=== PATIENT | male | born 1950 | race Caucasian/White ===

== ENCOUNTER 2017-02-14 14:27 | Inpatient (IN) ==
--- NOTE | 2017-02-14 15:08 | Emergency Department Note ---
Disposition Clinical Impression: Elevated troponin Chest pain Qualifiers: Chest pain type: unspecified Qualified Code(s): R07.9 - Chest pain, unspecified Disposition: Admitted As Inpatient Condition: Good Chest Pain HPI - General Chief Complaint: ED Chest Pain Stated Complaint: [facility] Time Seen by Provider: 02/14/17 14:39 Source: patient, EMS Limitations: no limitations Vital Signs Reviewed: Yes Nursing Notes Reviewed: Yes - History of Present Illness HPI Narrative: Patient here for evaluation of chest pain. Patient is a [facility] who has been complaining about intermittent chest pain for over the last week. The patient was evaluated with an EKG and troponin. Troponin was found to be elevated. Patient was sent to our facility for further evaluation. Patient states that he has been having intermittent chest pain for months that has been described as a pressure that is sometimes worse with exertion and sometimes worse with no provacation. Describes as a pressure that self resolves with time and rest. States that he had a previous stress test years ago that was negative. No other cardiac workup or evaluation. No history of coronary artery disease or stents placed. [facility] chart dictated below: Past medical history : Diabetes, tinnitus, right-sided congestive heart failure, and STEMI, recurrent depression, CTD stage III, hypothyroidism, dependent personality, essential hypertension, insomnia, COPD, pernicious anemia, colitis, Medications include: Insulin, metformin, albuterol, trazodone, cancellous, simvastatin, lisinopril, levothyroxine, hydrochlorothiazide, finasteride, citalopram, aspirin, patient site note has concern for suicidal ideation with plan to overdose on ____. Major depressive disorder. Labs: Glucose 103, troponin 0.201, CK 603, no other labs appear to be present at this time. We will complete workup here in the emergency department, Severity scale (1-10): 0 - Related Data Home Medications Medication Instructions Recorded Confirmed Acetaminophen [Tylenol] 650 mg PO BID 02/03/16 05/07/16 Aspirin Enteric Coated [Aspirin EC] 81 mg PO DAILY 02/03/16 05/07/16 Cholecalciferol (D-3) [Vitamin D] 2,000 unit PO DAILY 02/03/16 05/07/16 Citalopram [CeleXA] 20 mg PO DAILY 02/03/16 05/07/16 Clotrimazole 1% CRM [Lotrimin 1%] 1 appl TP BID 02/03/16 05/07/16 Cyanocobalamin (Vitamin B-12) 1,000 mcg PO SUMOWEFRSA 02/03/16 05/07/16 [Vitamin B12] Finasteride [Proscar] 5 mg PO DAILY 02/03/16 05/07/16 Ipratropium [ATROVENT Inhaler] 2 puff IH QID 02/03/16 05/07/16 Levothyroxine [Synthroid] 75 mcg PO QAM 02/03/16 05/07/16 Lisinopril [Zestril] 10 mg PO DAILY 02/03/16 05/07/16 Olodaterol HCl [Striverdi Respimat] 2 puff IH DAILY 02/03/16 05/07/16 Omeprazole [PriLOSEC] 20 mg PO DAILY 02/03/16 05/07/16 Saxagliptin HCl [Onglyza] 2.5 mg PO DAILY 02/03/16 05/07/16 Simvastatin [Zocor] 20 mg PO HS 02/03/16 05/07/16 Tamsulosin [Flomax] 0.4 mg PO DAILY 02/03/16 05/07/16 Zolpidem [Ambien] 5 mg PO HS 02/03/16 05/07/16 glipiZIDE [Glipizide] 10 mg PO QAM 02/03/16 05/07/16 glipiZIDE [Glipizide] 20 mg PO QPM 02/03/16 05/07/16 Insulin Glargine [Lantus] 50 unit SQ HS 02/06/16 05/07/16 Budesonide/Formoterol 160/4.5 2 puff IH BIDR 05/07/16 05/07/16 [Symbicort 160/4.5] Previous Rx's Medication Instructions Recorded Fluticasone Propionate [Flovent 100 mcg IH BID #1 blst.w.dev 02/06/16 Diskus] Furosemide [Lasix] 40 mg PO DAILY #30 tablet 02/06/16 Allergies Allergy/AdvReac Type Severity Reaction Status Date / Time No Known Allergies Allergy Verified 02/03/16 11:51 Review of Systems: CONSTITUTIONAL: No weight loss, fever, chills, weakness or fatigue. HEENT: Eyes: No visual changes. Ears, Nose, Throat: No hearing loss, difficulty talking or unable to swallow. SKIN: No rash or itching. CARDIOVASCULAR: Chest pain RESPIRATORY: No shortness of breath, cough or sputum. GASTROINTESTINAL: No anorexia, nausea, vomiting or diarrhea. No abdominal pain or blood. GENITOURINARY: No burning on urination or hematuria. NEUROLOGICAL: No headache, dizziness, syncope, paralysis, ataxia, numbness or tingling in the extremities. No change in bowel or bladder control. MUSCULOSKELETAL: No muscle pain, back pain, joint pain or stiffness. Chest Pain PMH - Past Medical History Medical history: Reports: CHF, COPD, diabetes, GERD, hyperlipidemia, hypertension, renal disease Surgical history: Reports: cholecystectomy Psychiatric history: Reports: depression, previous psychiatric hospitalization - Social History Smoking Status: Former smoker Alcohol use: Reports: none Drug use: Reports: none Physical Exam General appearance: NAD, conversant Eyes: anicteric sclerae, moist conjunctivae; PERRL HENT: Atraumatic; oropharynx clear with moist mucous membranes and no mucosal ulcerations Neck: Normal inspection; Trachea midline; FROM, supple Lungs: CTA, with normal respiratory effort and no intercostal retractions CV: RRR, no MRGs Abdomen: Soft, non-tender; no rebound or gaurding; significant abdominal hernia Extremities: No peripheral edema or extremity lymphadenopathy Skin: Normal temperature; no rash, ulcers or lesions Psych: Appropriate mood and affect Neuro: alert and oriented to person, place and time - General Limitations: no limitations General appearance: alert, in no apparent distress Course - Reevaluation(s) Reevaluation #1: chest pain free upon re-evaluation - Consultations Consultation #1: Discussed with Hospitalist. Pt accepted. Vital Signs Temperature 99.2 F 02/14/17 14:35 Pulse Rate 72 02/14/17 14:35 Respiratory Rate 18 02/14/17 14:35 Blood Pressure 120/64 02/14/17 14:35 O2 Sat by Pulse Oximetry 93 02/14/17 14:35 Temperature 99.2 F 02/14/17 14:35 Pulse Rate 70 02/14/17 17:31 Respiratory Rate 16 02/14/17 18:28 Blood Pressure 121/46 02/14/17 18:28 O2 Sat by Pulse Oximetry 94 02/14/17 17:31 Oxygen Delivery Oxygen Delivery Room Air Chest Pain - Medical Records Medical records reviewed: Yes I reviewed the patient's medical records. - Lab Data Lab results reviewed: Yes I reviewed the patient's lab results. Result diagrams: 02/14/17 16:29 02/14/17 16:29 Lab Results 02/14/17 02/14/17 02/14/17 Range/Units 16:29 16:29 16:29 WBC 12.4 H (4.3-11.1) K/mcL RBC 4.40 (4.19-5.50) M/mcL Hgb 9.6 L (12.9-16.9) g/dL Hct 32.6 L (37.5-50.1) % MCV 74.1 L (83.0-100.0) fL MCH 21.8 L (28.0-33.3) pg MCHC 29.4 L (31.6-35.5) g/dL RDW 16.1 H (11.5-14.5) % Plt Count 234 (140-400) K/mcL MPV 8.9 L (9.4-12.4) fL Immature Gran % 0.5 (0-4) % Seg Neutrophils % 71.4 % Lymphocytes % 17.7 % Monocytes % 8.3 % Eosinophils % 1.9 % Basophils % 0.2 % Neutrophils # 8.9 (1.6-8.9) K/mcL Lymphocytes # 2.2 (0.6-4.6) K/mcL Monocytes # 1.0 (0.0-1.3) K/mcL Eosinophils # 0.2 (0.0-0.6) K/mcL Basophils # 0.0 (0.0-0.2) K/mcL PT 12.3 H (9.4-12.1) Seconds INR 1.1 APTT 29.6 (26.0-36.0) Seconds Sodium 139 (136-145) mEq/L Potassium 4.6 H (3.5-4.5) mEq/L Chloride 101 (98-109) mEq/L Carbon Dioxide 28 (19-29) mEq/L BUN 21 (8-26) mg/dL Creatinine 1.51 H (0.72-1.25) mg/dL Est GFR ( Amer) 56 L (> 60) Est GFR (Non-Af Amer) 46 L (> 60) BUN/Creatinine Ratio 14 (6-26) Glucose 100 H (70-99) mg/dL Calculated Osmolality 291 (280-300) Calcium 9.9 (8.6-10.8) mg/dL Troponin I (0-0.03) ng/mL 02/14/17 Range/Units 16:29 WBC (4.3-11.1) K/mcL RBC (4.19-5.50) M/mcL Hgb (12.9-16.9) g/dL Hct (37.5-50.1) % MCV (83.0-100.0) fL MCH (28.0-33.3) pg MCHC (31.6-35.5) g/dL RDW (11.5-14.5) % Plt Count (140-400) K/mcL MPV (9.4-12.4) fL Immature Gran % (0-4) % Seg Neutrophils % % Lymphocytes % % Monocytes % % Eosinophils % % Basophils % % Neutrophils # (1.6-8.9) K/mcL Lymphocytes # (0.6-4.6) K/mcL Monocytes # (0.0-1.3) K/mcL Eosinophils # (0.0-0.6) K/mcL Basophils # (0.0-0.2) K/mcL PT (9.4-12.1) Seconds INR APTT (26.0-36.0) Seconds Sodium (136-145) mEq/L Potassium (3.5-4.5) mEq/L Chloride (98-109) mEq/L Carbon Dioxide (19-29) mEq/L BUN (8-26) mg/dL Creatinine (0.72-1.25) mg/dL Est GFR ( Amer) (> 60) Est GFR (Non-Af Amer) (> 60) BUN/Creatinine Ratio (6-26) Glucose (70-99) mg/dL Calculated Osmolality (280-300) Calcium (8.6-10.8) mg/dL Troponin I 0.04 H* (0-0.03) ng/mL - Radiology Data Radiology results reviewed: Yes I reviewed the patient's radiology results. - EKG Data EKG attestation: Yes I reviewed and interpreted this EKG. EKG results narrative: Sinus rhythm with ventricular rate of 73. IN 160. QRS 89. QTC 387. Patient has no significant ST elevations or depressions. Patient has nonspecific T- wave changes with no previous EKG for comparison. Patient's EKG from the [facility] for comparison is unchanged. Critical Care Time Critical Care Time: Yes Total Critical Care Time: 35 Attestation: Patient with elevated troponin. Attestation Statement - Attestation Attestation: Patient was seen with resident physician. I reviewed the history, physical, assessment and plan, and agree with the findings. I also personally evaluated this patient and had [id number] time with this patient. 66-year-old male who comes in from the [facility] psych department with a complaint of chest pain. Patient complained of chest pain for the last week more specifically today midsternal acid about 10 minutes it was sharp in nature. Troponin EKG were done. Troponin was positive. He is sent into the ED for evaluation and admission. Patient states that he is currently chest pain-free and denies other complaints. ED vital signs were stable. ENT is unremarkable. Heart and lungs are both normal. Abdomen is soft and nontender. Extremities unremarkable. Neurologically is patient is intact. ED course repeat troponin was positive at 0.04. EKG shows no acute ischemic changes. Patient is pain-free. Other labs shows some renal insufficiency. Discussed case as well as heparinization with hospitalist. Will get patient admitted to the hospital for further evaluation and treatment. Hemodynamically he was stable while in the emergency department. Agree with the resident physician assessment and plan. Critical care time managing chest pain 35 minutes.
[2017-02-14 16:38] LABS: Basophils % 0.2 %; Eosinophils # 0.2 K/mcL (0.0-0.6); Eosinophils % 1.9 %; Hematocrit 32.6 % (37.5-50.1); Hemoglobin 9.6 g/dL (12.9-16.9); Immature Granulocytes % 0.5 % (0-4); Lymphocytes # 2.2 K/mcL (0.6-4.6); Lymphocytes % 17.7 %; Mean Corpuscular HGB Conc 29.4 g/dL (31.6-35.5); Mean Corpuscular Hemoglobin 21.8 pg (28.0-33.3); Mean Corpuscular Volume 74.1 fL (83.0-100.0); Mean Platelet Volume 8.9 fL (9.4-12.4); Monocytes % 8.3 %; Neutrophils # 8.9 K/mcL (1.6-8.9); Platelet Count 234 K/mcL (140-400); Red Cell Distribution Width 16.1 % (11.5-14.5); Segmented Neutrophils % 71.4 %
[2017-02-14 16:43] LABS: INR 1.1; Prothrombin Time 12.3 Seconds (9.4-12.1)
[2017-02-14 16:46] LABS: Activated Partial Thrombo Time 29.6 Seconds (26.0-36.0)
[2017-02-14 16:51] LABS: Calcium 9.9 mg/dL (8.6-10.8); Potassium 4.6 mEq/L (3.5-4.5)
[2017-02-14] MEDS ORDERED: Aspirin 81 MG TAB.CHEW PO STA (17:05)
[2017-02-14] MEDS ORDERED: Naloxone 0.4 MG/ML INJ IVP PRN (19:34)
[2017-02-14] MEDS ORDERED: Ondansetron 4 MG/2 ML VIAL IVP PRN (20:06)
[2017-02-14] MEDS ORDERED: Acetaminophen 325 MG TABLET PO PRN (20:06)
[2017-02-14] MEDS ORDERED: Nitroglycerin 0.4 MG TAB.SUBL SL PRN (20:32)
[2017-02-14] MEDS: Ipratropium/Albuterol Neb 3 ML IH SCH ×2 (20:50→23:17)
--- NOTE | 2017-02-14 20:54 | Internal Med History&Physical ---
<Ken Johnson - Last Filed: 02/14/17 21:52> Date of Encounter: 02/14/17 Time of Encounter: 19:30 Assessment and Plan (1) Chest pain Current visit: Yes Status: Acute Patient presents with chest pain that he states has worsened recently. He reports that he has had chest pain for several years that comes and goes, but current chest pain is becoming more intense and presents as stabbing pain with no radiation. Patient reports he had previous stress test done [facility] and previous echo was approximately 1 year ago. Patient was admitted to the [facility] inpatient unit for the past week due to suicidal ideations and was transferred to [facility] due to his chest pain and initial abnormal troponin level of 0.04. Patient placed on continuous cardiac telemetry and supplemental O2 with SPO2 monitoring with orders for echocardiogram, trended troponins 2, and nitroglycerin when necessary. Orders placed for cardiology consult which was discussed with Dr. Rahman, ordered echocardiogram, continuous cardiac telemetry, supplemental O2 with SPO2 monitoring, trended troponins 2, and requisition for stress test results from [facility]. Due to patient's drop in hemoglobin and hematocrit, iron studies and fecal occult stool ordered to assess for possible GI bleeding. Will consider GI consult based on these results. Will hold patient's lisinopril, Lasix, and oral antihyperglycemic medications at this time. Patient to be monitored closely for signs of increasing cardiac and/or respiratory distress. Qualifiers: Chest pain type: unspecified Qualified Code(s): R07.9 - Chest pain, unspecified (2) Elevated troponin Current visit: Yes Status: Acute Patient presents with acute elevated troponin level of 0.04 from initial blood draw at the [facility]. Trend troponins 2 every 6 and continue to monitor patient for increasing chest pain and shortness of breath. Cardiology consult ordered and discussed with Dr. Rahman. Echocardiogram ordered. EKGs today show normal sinus rhythm. (3) Dyspnea Current visit: Yes Status: Acute Patient presents with acute dyspnea most likely related to recurrent chest pain symptoms and/or COPD. DuoNebs ordered Q4. Patient placed on supplemental O2 with titration of SPO2 less than 92% as well as SPO2 monitoring. Single view CXR today shows cardiomediastinal silhouette is unremarkable. Lungs are clear. No infiltrate, pleural fluid, or failure. No acute cardiopulmonary disease. Qualifiers: Dyspnea type: shortness of breath Qualified Code(s): R06.02 - Shortness of breath (4) Anemia Current visit: Yes Status: Acute Patient presents acute anemia based on Hgb of 9.6 today and HCT of 32.6. Approximately 1 year ago, patient's hemoglobin and hematocrit were within normal limits. This is concerning for possible GI bleed. Patient denies any current blood in stool or unusual bleeding but does report taking B12 daily. Will monitor patient for bleeding, especially since he is currently on heparin 5000 units subcutaneous every 12. We will consider GI consult for possible EGD based on ordered iron studies and fecal occult results. H/H to be monitored. Qualifiers: Anemia type: unspecified type Qualified Code(s): D64.9 - Anemia, unspecified (5) Suicidal ideation Current visit: Yes Status: Acute Patient presents with acute suicidal ideation for which she was hospitalized this week at the [facility]. Patient states he had plan to overdose on his insulin. He also reports previous attempt was in 1994 when he attempted to overdose. Patient states he is simply depressed and sick and tired. Patient to be pink slipped. Sitter ordered and placed. Psychiatric consult ordered. (6) HTN (hypertension) Current visit: Yes Status: Chronic Patient presents with history of chronic hypertension. Will monitor patient vital signs and hold patient's lisinopril. Qualifiers: Hypertension type: essential hypertension Qualified Code(s): I10 - Essential (primary) hypertension (7) HLD (hyperlipidemia) Current visit: Yes Status: Chronic Patient presents with history of chronic hyperlipidemia. Lipid panel ordered. Will continue patient's Zocor. Qualifiers: Hyperlipidemia type: pure hypercholesterolemia Qualified Code(s): E78.00 - Pure hypercholesterolemia, unspecified; E78.0 - Pure hypercholesterolemia (8) GERD (gastroesophageal reflux disease) Current visit: Yes Status: Chronic Patient presents with history of chronic gastroesophageal reflux disease. IVP Zofran ordered when necessary. IVP Protonix 40 mg twice a day ordered. Qualifiers: Esophagitis presence: esophagitis presence not specified Qualified Code(s) : K21.9 - Gastro-esophageal reflux disease without esophagitis (9) CKD stage 2 due to type 2 diabetes mellitus Current visit: Yes Status: Chronic Patient presents with history of chronic kidney disease stage II to type 2 diabetes. Patient's current GFR is 46 and creatinine 1.51. IV fluids to be used judiciously if necessary. 1.5 L daily fluid restriction. Monitor I&O and daily weight. (10) COPD (chronic obstructive pulmonary disease) Current visit: Yes Status: Chronic Patient presents with history of chronic COPD. Patient also has comorbidity of CHF but is currently not symptomatic for acute exacerbation. Patient reports mild shortness of breath which is most likely related to COPD. Supplemental O2 with titration and continuous SpO2 monitoring ordered. DuoNeb's ordered Q4. Qualifiers: COPD type: COPD with acute exacerbation Qualified Code(s): J44.1 - Chronic obstructive pulmonary disease with (acute) exacerbation (11) CHF (congestive heart failure) Current visit: Yes Status: Chronic Patient has history of chronic CHF but is currently not experiencing symptoms of fluid overload, pedal edema, or orthopnea. Patient reports mild SOB which is likely related to his chronic COPD. Patient placed on continuous cardiac telemetry and fluid restriction of 1.5L daily. Supplemental O2 with SpO2 monitoring. Qualifiers: Congestive heart failure type: unspecified congestive heart failure type Congestive heart failure chronicity: unspecified congestive heart failure chronicity Qualified Code(s): I50.9 - Heart failure, unspecified (12) DVT prophylaxis Current visit: Yes Status: Acute Patient to be placed on DVT prophylaxis due to current admission protocol and symptoms. Heparin 5,000 units SQ Q12 ordered. Patient to be assessed for signs of bleeding due to drop in Hgb and HCT and will discontinue heparin if necessary. Internal Medicine - H&P: HPI Chief complaint: Chest pain/Suicidal ideations Admitted From: Emergency Dept Plans for Post Hospital Care: Home History of present illness: Mr. Martin is a 66 year old male who presents from the [facility] psych unit due to chest pain and initial troponin of 0.04. Patient was hospitalized at the [facility] for suicidal ideations with plan. Patient states that he has had chest pain on and off for the past several years which has become worse recently. Patient presents with chest pain that he states has worsened recently. He reports that he has had chest pain for several years that comes and goes, but current chest pain is becoming more intense and presents as stabbing pain with no radiation. Patient reports he had previous stress test done [facility] and previous echo was approximately 1 year ago. Patient was admitted to the [facility] psychiatric inpatient unit for the past week due to suicidal ideations and was transferred to [facility] due to his chest pain and initial abnormal troponin level of 0.04. Patient placed on continuous cardiac telemetry and supplemental O2 with SPO2 monitoring with orders for echocardiogram, trended troponins 2, and nitroglycerin when necessary. Patient to be pink slipped with psych consult while inpatient. Patient denies recent illness, fever, chills, nausea, vomiting, abdominal pain, unusual bleeding, dizziness, changes in vision, presyncope, or syncope. Patient's medical history includes CHF, COPD , diabetes with insulin and oral control, GERD, hyperlipidemia, hypertension, and CKD. Mr. Martin is at moderate risk for cardiac event based on current symptoms and risk factors replaces inpatient status with orders for cardiology consult which was placed and discussed with Dr. Rahman, ordered echocardiogram, continuous cardiac telemetry, supplemental O2 with SPO2 monitoring, trended troponins 2, and requisition for stress test results from [facility]. Due to patient's drop in hemoglobin and hematocrit, iron studies and fecal occult stool ordered to assess for possible GI bleeding. Will consider GI consult based on these results. Will hold patient's lisinopril, Lasix, and oral antihyperglycemic medications at this time. Patient to be monitored closely for signs of increasing cardiac and/or respiratory distress. Time spent with patient greater than 40 minutes. Past Med Surg Social Fam HX - Past Medical History Source: patient Medical history: CHF, COPD, diabetes, GERD, hyperlipidemia, hypertension, renal disease Psychiatric history: anxiety, depression, PTSD, prior suicide attempt (1994 with overdose), previous psychiatric hospitalization - Past Surgical History Surgical History: cholecystectomy, other (Tonsillectomy) - Social History Smoking Status: Former smoker Packs per day: 1 PPD - reports quitting in 1970 Smokeless Tobacco Status: No Alcohol use: none Drug use: none Current living situation: Long Term Activity Level: Independent ambulation Recent Out of Country Travel Within the Last 8 Weeks: No Exposure or Possible Exposure to Illness During Travel: No - Family History Father Name: Phillip Martin Race: Family Member Ethnicity: Non- Living Status: Age at : 80 Cause of : [place] Hx Family Cardiac Disorders: Yes ([place], HTN) Mother Race: Family Member Ethnicity: Non- Living Status: Age at : 79 Cause of : Stroke Hx Family Cardiac Disorders: Yes (Stroke) Brother Race: Family Member Ethnicity: Non- Living Status: Still Living Hx Family Medical Disorders: No Sister Race: Family Member Ethnicity: Non- Living Status: Still Living Hx Family Medical Disorders: No Internal Medicine - H&P: Meds Acetaminophen [Tylenol] 650 mg PO BID 02/03/16 [History] Aspirin Enteric Coated [Aspirin EC] 81 mg PO DAILY 02/03/16 [History] Cholecalciferol (D-3) [Vitamin D] 2,000 unit PO DAILY 02/03/16 [History] Citalopram [CeleXA] 20 mg PO DAILY 02/03/16 [History] Clotrimazole 1% CRM [Lotrimin 1%] 1 appl TP BID 02/03/16 [History] Cyanocobalamin (Vitamin B-12) [Vitamin B12] 1,000 mcg PO SUMOWEFRSA 02/03/16 [ History] Finasteride [Proscar] 5 mg PO DAILY 02/03/16 [History] Ipratropium [ATROVENT Inhaler] 2 puff IH QID 02/03/16 [History] Levothyroxine [Synthroid] 75 mcg PO QAM 02/03/16 [History] Lisinopril [Zestril] 10 mg PO DAILY 02/03/16 [History] Olodaterol HCl [Striverdi Respimat] 2 puff IH DAILY 02/03/16 [History] Omeprazole [PriLOSEC] 20 mg PO DAILY 02/03/16 [History] Saxagliptin HCl [Onglyza] 2.5 mg PO DAILY 02/03/16 [History] Simvastatin [Zocor] 20 mg PO HS 02/03/16 [History] Tamsulosin [Flomax] 0.4 mg PO DAILY 02/03/16 [History] Zolpidem [Ambien] 5 mg PO HS 02/03/16 [History] glipiZIDE [Glipizide] 10 mg PO QAM 02/03/16 [History] glipiZIDE [Glipizide] 20 mg PO QPM 02/03/16 [History] Fluticasone Propionate [Flovent Diskus] 100 mcg IH BID #1 blst.w.dev 02/06/16 [ Rx] Furosemide [Lasix] 40 mg PO DAILY #30 tablet 02/06/16 [Rx] Insulin Glargine [Lantus] 50 unit SQ HS 02/06/16 [History] Budesonide/Formoterol 160/4.5 [Symbicort 160/4.5] 2 puff IH BIDR 05/07/16 [ History] 3 Allergy/AdvReac Type Severity Reaction Status Date / Time No Known Allergies Allergy Verified 02/03/16 11:51 All Systems PM: A 10-system review of systems was performed and is negative for pertinent findings except as documented above in the HPI. - Constitutional Constitutional: no chills, no fever(s), no night sweats - EENT Eyes: no change in vision, no discharge, no pain, no photophobia Ears: no ear discharge, no ear pain, no tinnitus Nose, mouth and throat: no dysphagia, no nasal discharge, no neck pain, no sore throat - Breasts Breasts: as per HPI - Cardiovascular Cardiovascular ROS IM: as per HPI, chest pain, dyspnea - Respiratory Respiratory: as per HPI, dyspnea - Gastrointestinal Gastrointestinal: no abdominal pain, no diarrhea, no hematemesis, no hematochezia, no melena, no nausea, no vomiting - Genitourinary Genitourinary ROS male: as per HPI - Musculoskeletal Musculoskeletal ROS IM: no numbness, no tingling - Integumentary Integumentary IM: no rash, no unusual bruising - Neurological Neurological ROS: no confusion, no convulsions, no focal weakness, no numbness, no tingling, no tremor(s) - Psychiatric Psychiatric: as per HPI, anxiety, depression, suicidal ideation - Endocrine Endocrine IM: as per HPI - Hematologic/Lymphatic Hematologic/Lymphatic: no easy bruising - Allergic/Immunologic Allergic/Immunologic: as per HPI - Constitutional Vitals: Temp Pulse Resp BP Pulse Ox 97.7 F 66 18 121/72 94 02/14/17 20:35 02/14/17 20:35 02/14/17 20:35 02/14/17 20:35 02/14/17 20:35 General appearance: Present: cooperative, A&O X 3, morbidly obese, pleasant, no acute distress, answers questions appropriately - Head Head exam: Present: atraumatic, normocephalic - Eye Eye exam: Present: PERRL, conjuntiva pink, sclera anicteric Pupils: Present: PERRL - ENT ENT exam: Present: normal exam, normal external ear exam - Neck Neck exam general surgery: Present: normal inspection, supple, trachea midline. Absent: lymphadenopathy - Respiratory Respiratory exam: Present: CTAB. Absent: accessory muscle use, rales, rhonchi, wheezes - Cardiovascular Cardiovascular exam: Present: RRR, +S1, +S2. Absent: diastolic murmur, gallop, rubs, systolic murmur - GI/Abdominal GI/Abdominal exam: Present: hernia (Large post-surgical (cholecystectomy) hernia present on left side of abdomen), normal bowel sounds, soft, no peritoneal signs. Absent: distended, tenderness - Rectal Rectal exam: Present: deferred - Additional comments: exam deferred. - Extremities Exam Extremities exam: Present: pedal edema (Mild and non-pitting), warm, radial pulses palpable and symmetrical. Absent: calf tenderness, cyanotic - Back Exam Back exam: Present: normal inspection - Neurological Exam Neurological exam: Present: CN II-XII intact, oriented X3, no focal deficits. Absent: pronater drift, facial droop, speech deficit - Psychiatric Psychiatric exam: Present: normal affect, normal mood - Skin Skin exam: Present: dry, intact Internal Med - H&P Results - Labs CBC & Chem 7: 02/14/17 16:29 02/14/17 16:29 - EKG Data EKG shows normal: sinus rhythm Rate: normal - EKG Data Prior EKG available for review: yes When compared to previous EKG: there is no significant change EKG comments: 02/14/17 21:05 [facility] normal [facility] rhythm and normal ECG. EKG dated 02/14/17 from the ED shows sinus rhythm with non-specific T-wave abnormality. - Diagnostic Studies Chest x-ray Additional comments: Impressions Chest X-Ray 02/14/17 15:40 IMPRESSION: No acute cardiopulmonary disease. D/ / Benoit Starr MD / Benoit Starr MD Interpreting Provider: Benoit Starr MD <Pj Haskins - Last Filed: 02/14/17 22:33> Date of Encounter: 02/14/17 Time of Encounter: 21:05 - Cardiovascular Cardiovascular ROS IM: chest pain, dyspnea, dyspnea on exertion, no edema - Respiratory Respiratory: no hemoptysis, no chest congestion, no excessive phlegm production - Genitourinary Genitourinary ROS male: no dysuria, no flank pain - Musculoskeletal Musculoskeletal ROS IM: no arthralgias, no back pain - Neurological Neurological ROS: no focal weakness, no headache(s) - Psychiatric Psychiatric: anxiety, depression, suicidal ideation - Endocrine Endocrine IM: no polydipsia, no polyuria - Allergic/Immunologic Allergic/Immunologic: no wheezing, no GI upset with certain foods - Constitutional Vitals: Temp Pulse Resp BP Pulse Ox 97.7 F 66 18 121/72 94 02/14/17 20:35 02/14/17 20:35 02/14/17 20:35 02/14/17 20:35 02/14/17 20:35 General appearance: Present: cooperative, A&O X 3, pleasant, answers questions appropriately - Head Head exam: Present: atraumatic, normal inspection - Eye Eye exam: Present: EOMI, PERRL. Absent: scleral icterus Pupils: Present: normal accommodation - ENT ENT exam: Present: normal exam - Respiratory Respiratory exam: Present: CTAB. Absent: accessory muscle use, rales, rhonchi, wheezes - Cardiovascular Cardiovascular exam: Present: RRR, +S1, +S2. Absent: diastolic murmur, systolic murmur - GI/Abdominal GI/Abdominal exam: Present: hernia, normal bowel sounds, soft. Absent: tenderness - Back Exam Back exam: Present: normal inspection. Absent: CVA tenderness (L), CVA tenderness (R) - Psychiatric Psychiatric exam: Present: flat affect, normal mood, suicidal ideation - Skin Skin exam: Present: dry, warm Internal Med - H&P Results - Labs CBC & Chem 7: 02/14/17 16:29 02/14/17 16:29 Labs: Cardiac Enzymes 02/14/17 Range/Units 21:03 Troponin I 0.05 H* (0-0.03) ng/mL - EKG Data -: EKG Interpreted by Myself EKG shows normal: sinus rhythm Rate: normal - EKG Data Prior EKG available for review: yes When compared to previous EKG: there is no significant change - Diagnostic Studies Chest x-ray Status: image reviewed by me (negative) - Attending Attestation I discussed the patient [facility], PMH, ROS, lab data, and exam findings with Anirudh Johnson CNP. I then saw and examined patient independently as well. Patient is currently CP free, but his troponins are barely elevated. EKG is unremarkable. He does warrant cardiac work-up as detailed by Anirudh. However, if patient does need LHC, patient may need GI work-up (EGD/colonoscopy) prior to LHC given that he has evidence of a new microcytic anemia. He denies any GI blood loss, but he does have GERD. He is also suicidal and has a plan. He was transferred from inpatient psychiatry from [facility] with suicidal ideations. I have therefore pink-slipped patient and we have consulted psychiatry as well. He has been placed in suicide precautions and has a sitter as well. Other than my comments above and noted exam findings, I agree with Anirudh's assessment and plan.
[2017-02-14] MEDS ORDERED: *HR* Dextrose 50 % in Water (Syg) 50 ML SYRINGE IVP PRN (22:08)
[2017-02-14] MEDS ORDERED: D5% in Water 1,000 ML IVC PRN (22:08)
[2017-02-14] MEDS ORDERED: Dextrose Gel 15 GM PO PRN ×2 (22:08)
[2017-02-15] MEDS: Insulin LISPRO 300 UNITS/3 ML VIAL SQ SCH ×5 (00:05→21:22)
[2017-02-15 04:44] LABS: INR 1.2; Prothrombin Time 12.9 Seconds (9.4-12.1)
[2017-02-15 04:46] LABS: Activated Partial Thrombo Time 30.5 Seconds (26.0-36.0)
[2017-02-15 04:52] LABS: Hemoglobin A1C 6.5 %
[2017-02-15 04:54] LABS: Basophils % 0.4 %; Eosinophils # 0.2 K/mcL (0.0-0.6); Eosinophils % 2.1 %; Hematocrit 32.4 % (37.5-50.1); Hemoglobin 9.4 g/dL (12.9-16.9); Immature Granulocytes % 0.6 % (0-4); Lymphocytes # 1.9 K/mcL (0.6-4.6); Lymphocytes % 17.6 %; Mean Corpuscular Hemoglobin 21.6 pg (28.0-33.3); Mean Corpuscular Volume 74.5 fL (83.0-100.0); Mean Platelet Volume 9.6 fL (9.4-12.4); Monocytes # 0.9 K/mcL (0.0-1.3); Monocytes % 8.2 %; Neutrophils # 7.6 K/mcL (1.6-8.9); Platelet Count 239 K/mcL (140-400); Red Blood Count 4.35 M/mcL (4.19-5.50); Red Cell Distribution Width 16.1 % (11.5-14.5); Segmented Neutrophils % 71.1 %
[2017-02-15 04:55] LABS: BUN/Creatinine Ratio 16 (6-26); Blood Urea Nitrogen 21 mg/dL (8-26); Calcium 9.6 mg/dL (8.6-10.8); Carbon Dioxide 30 mEq/L (19-29); Chloride 101 mEq/L (98-109); Chol/HDL Ratio 3.8 (0-4.9); Cholesterol 127 mg/dL (< 200); Glucose 118 mg/dL (70-99); HDL Cholesterol 33 mg/dL (40-59); LDL Cholesterol,Calculated 56 mg/dL (0-99); Magnesium 2.1 mg/dL (1.6-2.6); Osmolality,Calculated 290 (280-300); Potassium 4.3 mEq/L (3.5-4.5); Sodium 138 mEq/L (136-145); Triglycerides 191 mg/dL (< 150); eGFR For African Americans > 60 (> 60); eGFR For Non-African Americans 55 (> 60)
[2017-02-15 05:14] LABS: % Iron Saturation 5 % (20-55); Iron 26 mcg/dL (65-175); Transferrin 342 mg/dL (174-364)
[2017-02-15] MEDS: Ipratropium/Albuterol Neb 3 ML IH SCH ×6 (05:32→23:48)
[2017-02-15] MEDS: *HR* Heparin 5,000 UNIT/ML VIAL SQ SCH ×2 (05:40→17:26)
[2017-02-15] MEDS: Pantoprazole 40 MG VIAL IVP SCH ×3 (09:54→21:13)
[2017-02-15] MEDS ORDERED: Perflutren Lipid Microsphere 1.3 ML in 0.9 % Sodium Chloride 8.7 ML IVP ONE (10:56)
--- NOTE | 2017-02-15 14:00 | Cardiology Consult Note ---
Date of Encounter: 02/15/17 Time of Encounter: 13:00 Assessment and Plan (1) Suicidal ideation Current Visit: Yes Status: Acute Per Cardiology: Recent admission to the [facility] for [facility] ideation. Currently denies any suicidal ideation. Being monitored by a sitter. Psychiatric consult pending. Further management per primary service. (2) Chest pain Current Visit: Yes Status: Chronic Per Cardiology: Atypical chest pain occurring at rest. Chest pain symptoms appear to be chronic now for many years. Initial troponins 0.04, 0.05, and 0.03. Of note, hemoglobin down from 14 to now 9 over the past one year. Do not suspect ACS, suspect demand ischemia in setting of anemia. Had echo January 2016 showed EF 60%, NSWMA. Current echo pending. Reportedly had negative stress test about one year ago-- Will attempt to obtain medical records. Continue to monitor telemetry. Assuming no significant changes on echo would recommend outpatient follow-up. We 'll add aspirin for now-- monitor closely for any bleeding. Systolic blood pressures in the 110s to 120s and heart rates in the 50s to 60s. LDL good in the 60s. Discussed and reviewed with Dr. Sumner, recommend avoid further ischemic evaluation for now d/t recent suicidal ideation and concerns for anemia. Qualifiers: Chest pain type: unspecified Qualified Code(s): R07.9 - Chest pain, unspecified (3) Elevated troponin Current Visit: Yes Status: Acute Per Cardiology: Her last cardiac consult January 2016 reportedly mild troponin elevations at [facility], however negative during the hospital stay. Peak troponin 0.05 of unclear significance-- in setting of hemoglobin of 9. No cardiac consult rehabilitation consult wanted this time. (4) Anemia Current Visit: Yes Status: Acute Per Cardiology: Patient denies any active bleeding or blood loss, he is unsure though if he's had any dark stools. Again, hemoglobin down from 14 to 9 over the past year. Occult stool pending. Consider GI consult if appropriate. Monitor closely with baby aspirin. Qualifiers: Anemia type: unspecified type Qualified Code(s): D64.9 - Anemia, unspecified Discussion w patient/family: The assessment and plan as outlined above was discussed with the patient who expressed understanding and agreement. All questions were answered. Thank you for involving us in the care of your patient. Please call with any questions. History of Present Illness Consult date: 02/15/17 Consult reason: CP, Mild Trop Chief complaint: CP History of present illness: Mr. Martin is a 66 year old male relevant past medical history of COPD, diabetes mellitus type 2, GERD, hyperlipidemia, hypertension, CK D stage II, and past history of nicotine abuse with last smoking in 1970. Family history with father with [place]. Cardiology consult for chest pain and mild troponin elevation. Of note cardiology consult on patient January 2016 as well for mild troponin elevations reportedly at the [facility], however negative during that hospital stay. Had echo at that time showed EF 60%, mild diastolic dysfunction, dilated RV with normal function, no significant valvular dysfunction, and no pulmonary hypertension, NSWMA. Patient reports he presented to the [facility] for suicidal ideation. He denies any actual attempt, however had developed a plan. Patient reports he had midsternal chest tightness this been intermittent now for years. He reports due to these chest pain symptoms he was transferred to [facility]. He denies any previous history of CAD or catheterization in the past. He denies any current suicidal ideation. Denies any current chest pain. He denies any awareness of any active bleeding or blood loss. He denied any shortness of breath, fatigue, palpitations. He reports recent negative stress test about one year ago at [facility]. Past Med Surg Social Fam HX - Past Medical History Attestation: Yes The following information was validated with the patient. Source: patient, old records reviewed Medical history: CHF, COPD, diabetes, GERD, hyperlipidemia, hypertension, renal disease Psychiatric history: anxiety, depression, PTSD, prior suicide attempt (1994 with overdose), previous psychiatric hospitalization - Past Surgical History Surgical History: cholecystectomy, other (Tonsillectomy) - Social History Smoking Status: Former smoker Packs per day: 1 PPD - reports quitting in 1970 Smokeless Tobacco Status: No Alcohol use: none Drug use: none - Family History Mother Race: Family Member Ethnicity: Non- Living Status: Age at : 79 Cause of : Stroke Hx Family Cardiac Disorders: Yes (Stroke) Brother Race: Family Member Ethnicity: Non- Living Status: Still Living Hx Family Medical Disorders: No Sister Race: Family Member Ethnicity: Non- Living Status: Still Living Hx Family Medical Disorders: No Father Name: Phillip Martin Race: Family Member Ethnicity: Non- Living Status: Age at : 80 Cause of : [place] Hx Family Cardiac Disorders: Yes ([place], HTN) Hx Family Respiratory Disorders: No Hx Family Cancer: No Hx Family GI Disorders: No Hx Family Genitourinary Disorders: No Hx Family Endocrine Disorder: No Hx Family Musculoskeletal Disorders: No Hx Family Neuromuscular Disorders: No Hx Family Neurologic Disorders: No Hx Family HEENT Disorders: No Hx Family Autoimmune Disorders: No Hx Family Reproductive Disorders: No Hx Family Psychosocial Disorders: No Medications and Allergies Aspirin Enteric Coated [Aspirin EC] 81 mg PO DAILY 02/03/16 [History] Cholecalciferol (D-3) [Vitamin D] 2,000 unit PO DAILY 02/03/16 [History] Citalopram [CeleXA] 20 mg PO DAILY 02/03/16 [History] Cyanocobalamin (Vitamin B-12) [Vitamin B12] 1,000 mcg PO SUMOWEFRSA 02/03/16 [ History] Finasteride [Proscar] 5 mg PO DAILY 02/03/16 [History] Ipratropium [ATROVENT Inhaler] 2 puff IH QID 02/03/16 [History] Levothyroxine [Synthroid] 75 mcg PO QAM 02/03/16 [History] Lisinopril [Zestril] 10 mg PO DAILY 02/03/16 [History] Omeprazole [PriLOSEC] 20 mg PO DAILY 02/03/16 [History] Simvastatin [Zocor] 40 mg PO HS 02/03/16 [History] Tamsulosin [Flomax] 0.4 mg PO DAILY 02/03/16 [History] Insulin Glargine [Lantus] 60 unit SQ HS 02/06/16 [History] Budesonide/Formoterol 160/4.5 [Symbicort 160/4.5] 2 puff IH BIDR 05/07/16 [ History] Albuterol Neb Q4HR 02/14/17 [History] Insulin ASPART [NovoLOG] 02/14/17 [History] Trazodone HCl 150 mg PO HS 02/14/17 [History] hydroCHLOROthiazide [Hydrochlorothiazide] 25 mg PO DAILY 02/14/17 [History] metFORMIN [Glucophage] 500 mg PO BID 02/14/17 [History] 3 Allergy/AdvReac Type Severity Reaction Status Date / Time No Known Allergies Allergy Verified 02/03/16 11:51 All Systems Review: A 10-system review of systems was performed and is negative for pertinent findings except as documented above in the HPI. - Cardiovascular Cardiovascular: chest pain at rest - Psychiatric Psychiatric: depression, other (Recent suicidal ideation, currently with sitter at bedside) Physical Examination Selected Entries 02/14/17 20:35 02/14/17 23:17 02/15/17 09:30 Temperature 97.7 F Pulse Rate 66 Respiratory Rate 16 Blood Pressure 121/72 O2 Sat by Pulse Oximetry 93 Fraction of Inspired Oxygen 21 Oxygen Delivery Method Room Air General: Conversant, No Apparent Distress HEENT: Atraumatic, Normocephaly, Mucus Membranes Moist Neck: No JVD, Normal carotid pulses Cardiac: Reg Rate and Rhythm, Normal S1 and S2, No Murmur Lungs: Normal Breath Sounds, No Wheeze, Rales, Rhonchi Neuro: Alert and responsive, No focal deficits noted Abdomen: Soft, Non-Tender, Other (Obese) Skin: No rashes noted on visualized skin Musculoskeletal: No Chest Wall Tenderness Extremities: No Clubbing, No Cyanosis, No Edema, Normal Pulses Results 02/15/17 04:06 02/15/17 04:06 Lab Results Laboratory Tests 02/04/16 02/06/16 02/06/16 03:16 02:50 02:50 Hgb 14.7 Hct 43.8 INR Creatinine 1.39 H 1.48 H Magnesium Troponin I LDL Cholesterol, Calc 02/14/17 02/14/17 02/14/17 16:29 16:29 16:29 Hgb 9.6 L Hct 32.6 L INR Creatinine 1.51 H Magnesium Troponin I 0.04 H* LDL Cholesterol, Calc 02/14/17 02/15/17 02/15/17 21:03 04:06 04:06 Hgb 9.4 L Hct 32.4 L INR Creatinine Magnesium Troponin I 0.05 H* 0.03 LDL Cholesterol, Calc 02/15/17 02/15/17 04:06 04:06 Hgb Hct INR 1.2 Creatinine 1.31 H Magnesium 2.1 Troponin I LDL Cholesterol, Calc 56 ITS Impressions Chest X-Ray 02/14/17 15:40 IMPRESSION: No acute cardiopulmonary disease. D/ / Benoit Starr MD / Benoit Starr MD Interpreting Provider: Benoit Starr MD Active Medications Acetaminophen (Tylenol) 650 mg PO Q6HR PRN PRN Reason: Mild Pain (1-3) Stop: 08/16/17 20:07 Albuterol/Ipratropium (Duoneb) 3 ml IH [id number] HALEY Stop: 08/16/17 20:46 Last Admin: 02/15/17 11:17 Dose: Not Given Aspirin (Aspirin Ec) 81 mg PO DAILY [facility] Stop: 08/18/17 09:01 Dextrose/Water (Dextrose 50% (Syg)) 25 ml IVP AD PRN PRN Reason: Hypoglycemia Stop: 08/16/17 22:09 Glucagon (Glucagen) 1 mg IM ONCE PRN PRN Reason: Hypoglycemia Stop: 08/16/17 22:09 Glucose (Gluctose) 15 gm PO ONCE PRN PRN Reason: Hypoglycemia Stop: 08/16/17 22:09 Glucose (Gluctose) 30 gm PO ONCE PRN PRN Reason: Hypoglycemia Stop: 08/16/17 22:09 Heparin Sodium (Porcine) (Heparin) 5,000 unit SQ Q12HR [facility] Stop: 08/17/17 06:01 Last Admin: 02/15/17 05:40 Dose: 5,000 unit Dextrose (Dextrose 5%) 1,000 mls @ 100 mls/hr IVC .Q10H PRN PRN Reason: HYPOGLYCEMIA Stop: 08/16/17 22:09 Insulin Human Lispro (Humalog) 0 units SQ TIDAC HALEY PRN Reason: Protocol Stop: 08/17/17 07:31 Last Admin: 02/15/17 12:26 Dose: 2 units Insulin Human Lispro (Humalog) 0 units SQ HS [facility] PRN Reason: Protocol Stop: 08/16/17 22:16 Last Admin: 02/15/17 00:05 Dose: Not Given Naloxone HCl (Narcan) 0.4 mg IVP Q2MIN PRN PRN Reason: Opioid Reversal Stop: 08/16/17 19:35 Nitroglycerin (Nitroglycerin) 0.4 mg SL Q5MIN PRN PRN Reason: Chest Pain Stop: 08/16/17 20:33 Ondansetron HCl (Zofran) 4 mg IVP Q8HR PRN PRN Reason: Nausea And Vomiting Stop: 08/16/17 20:07 Pantoprazole Sodium (Protonix) 40 mg IVP BID HALEY Stop: 08/16/17 21:01 Last Admin: 02/15/17 09:54 Dose: 40 mg - Imaging and Cardiology Chest Xray: report reviewed Stress Test: other (We'll attempt to receive stress test from outside facility about one year ago) Echo: pending, report reviewed - EKG Interpretation EKG results cardiology: personally reviewed (Sinus rhythm in the 80s), normal ECG, sinus rhythm Consult Discharge Plan - Plan [facility]: [facility] [Primary Care Provider] -
--- NOTE | 2017-02-15 14:40 | Consult Note ---
Date of Encounter: 02/15/17 Time of Encounter: 14:00 Assessment & Recommendation (1) Depression, major, recurrent, mild Current visit: Yes Status: Acute Assessment & Recommendation: From psychiatric standpoint patient is currently stable and nonsuicidal. When he is medically stable he can be discharged home and follow up with psychiatry at the [facility]. Thank you for consultation. History of Present Illness Patient: new to practice Requesting Physician: Isis Sanderson CNP Reason for consult: Depression and suicidal ideation History of present illness: Mr. Martin is a 66 year old male admitted to the medical unit from the [facility] for evaluation treatment of chest pain. Patient initially was hospitalized for evaluation of suicidal ideation, and he had history of depression and treated with antidepressant citalopram. Patient experienced chest pain and was transferred to [facility] for treatment. Psychiatric consultation was requested to evaluate its depression and suicidal ideation and recommend disposition after treatment. Patient states that he lives in a long-term and feeling lonely and isolated. He is concerned about his medical issues including COPD, diabetes, CHF, anemia, hypertension and Chest pain. Patient currently denies any suicidal ideation or hopelessness and anxious about his current treatment. CC: Isis Sanderson CNP Past Med Surg Social Fam HX - Past Medical History Medical history: CHF, COPD, diabetes, GERD, hyperlipidemia, hypertension, renal disease - Past Psychiatric History Psychiatric history: Reports: depression, previous psychiatric hospitalization Past psychiatric history details: Psychiatric treatment at the [facility] Family psychiatric history: Unknown - Past Surgical History Surgical History: cholecystectomy, other (Tonsillectomy) - Social History Smoking Status: Former smoker Smokeless Tobacco Status: No Alcohol use: none Drug use: none - Family History Mother Race: Family Member Ethnicity: Non- Living Status: Age at : 79 Cause of : Stroke Hx Family Cardiac Disorders: Yes (Stroke) Brother Race: Family Member Ethnicity: Non- Living Status: Still Living Hx Family Medical Disorders: No Sister Race: Family Member Ethnicity: Non- Living Status: Still Living Hx Family Medical Disorders: No Father Name: Phillip Martin Race: Family Member Ethnicity: Non- Living Status: Age at : 80 Cause of : [place] Hx Family Cardiac Disorders: Yes ([place], HTN) Hx Family Respiratory Disorders: No Hx Family Cancer: No Hx Family GI Disorders: No Hx Family Genitourinary Disorders: No Hx Family Endocrine Disorder: No Hx Family Musculoskeletal Disorders: No Hx Family Neuromuscular Disorders: No Hx Family Neurologic Disorders: No Hx Family HEENT Disorders: No Hx Family Autoimmune Disorders: No Hx Family Reproductive Disorders: No Hx Family Psychosocial Disorders: No Medications & Allergies Aspirin Enteric Coated [Aspirin EC] 81 mg PO DAILY 02/03/16 [History] Cholecalciferol (D-3) [Vitamin D] 2,000 unit PO DAILY 02/03/16 [History] Citalopram [CeleXA] 20 mg PO DAILY 02/03/16 [History] Cyanocobalamin (Vitamin B-12) [Vitamin B12] 1,000 mcg PO SUMOWEFRSA 02/03/16 [ History] Finasteride [Proscar] 5 mg PO DAILY 02/03/16 [History] Ipratropium [ATROVENT Inhaler] 2 puff IH QID 02/03/16 [History] Levothyroxine [Synthroid] 75 mcg PO QAM 02/03/16 [History] Lisinopril [Zestril] 10 mg PO DAILY 02/03/16 [History] Omeprazole [PriLOSEC] 20 mg PO DAILY 02/03/16 [History] Simvastatin [Zocor] 40 mg PO HS 02/03/16 [History] Tamsulosin [Flomax] 0.4 mg PO DAILY 02/03/16 [History] Insulin Glargine [Lantus] 60 unit SQ HS 02/06/16 [History] Budesonide/Formoterol 160/4.5 [Symbicort 160/4.5] 2 puff IH BIDR 05/07/16 [ History] Albuterol Neb Q4HR 02/14/17 [History] Insulin ASPART [NovoLOG] 02/14/17 [History] Trazodone HCl 150 mg PO HS 02/14/17 [History] hydroCHLOROthiazide [Hydrochlorothiazide] 25 mg PO DAILY 02/14/17 [History] metFORMIN [Glucophage] 500 mg PO BID 02/14/17 [History] 3 Allergy/AdvReac Type Severity Reaction Status Date / Time No Known Allergies Allergy Verified 02/03/16 11:51 Review of Systems Psychiatric: Reports: depression, anxiety Mental Status Exam Patient orientation: Yes Person, Yes Time, Yes Place Level of alertness: Alert Patient appearance: Appropriate, Well Groomed, Obese Behavior: calm, cooperative Psychomotor activity: Slowed Eye contact: Fleeting Contact Mood description: Depressed, Anxious Affect description: congruent with mood, constricted Speech pattern: Normal rate, Normal rhythm, Normal tone Speech volume: Normal Thought process: Linear, Goal Oriented Thought content: No Suicidal ideation, No Homicidal ideation, No Overt delusions Perceptual disturbances: No Auditory hallucinations, No Visual hallucinations Attention span: Capable of Focused Attention Memory description: Grossly Intact Patient reliability: Reliable Historian Intelligence estimate: Average Judgment: Limited Insight: Partial Results - Vital Signs Vital signs: Temp Pulse Resp BP Pulse Ox 97.7 F 66 16 121/72 93 02/14/17 20:35 02/14/17 20:35 02/14/17 23:17 02/14/17 20:35 02/14/17 23:17 - Labs Labs: Laboratory Last Values WBC 10.7 K/mcL (4.3-11.1) 02/15/17 04:06 RBC 4.35 M/mcL (4.19-5.50) 02/15/17 04:06 Hgb 9.4 g/dL (12.9-16.9) L 02/15/17 04:06 Hct 32.4 % (37.5-50.1) L 02/15/17 04:06 MCV 74.5 fL (83.0-100.0) L 02/15/17 04:06 MCH 21.6 pg (28.0-33.3) L 02/15/17 04:06 MCHC 29.0 g/dL (31.6-35.5) L 02/15/17 04:06 RDW 16.1 % (11.5-14.5) H 02/15/17 04:06 Plt Count 239 K/mcL (140-400) 02/15/17 04:06 MPV 9.6 fL (9.4-12.4) 02/15/17 04:06 Immature Gran % 0.6 % (0-4) 02/15/17 04:06 Seg Neutrophils % 71.1 % 02/15/17 04:06 Lymphocytes % 17.6 % 02/15/17 04:06 Monocytes % 8.2 % 02/15/17 04:06 Eosinophils % 2.1 % 02/15/17 04:06 Basophils % 0.4 % 02/15/17 04:06 Neutrophils # 7.6 K/mcL (1.6-8.9) 02/15/17 04:06 Lymphocytes # 1.9 K/mcL (0.6-4.6) 02/15/17 04:06 Monocytes # 0.9 K/mcL (0.0-1.3) 02/15/17 04:06 Eosinophils # 0.2 K/mcL (0.0-0.6) 02/15/17 04:06 Basophils # 0.0 K/mcL (0.0-0.2) 02/15/17 04:06 PT 12.9 Seconds (9.4-12.1) H 02/15/17 04:06 INR 1.2 02/15/17 04:06 APTT 30.5 Seconds (26.0-36.0) 02/15/17 04:06 Sodium 138 mEq/L (136-145) 02/15/17 04:06 Potassium 4.3 mEq/L (3.5-4.5) 02/15/17 04:06 Chloride 101 mEq/L (98-109) 02/15/17 04:06 Carbon Dioxide 30 mEq/L (19-29) H 02/15/17 04:06 BUN 21 mg/dL (8-26) 02/15/17 04:06 Creatinine 1.31 mg/dL (0.72-1.25) H 02/15/17 04:06 Est GFR ( Amer) > 60 (> 60) 02/15/17 04:06 Est GFR (Non-Af Amer) 55 (> 60) L 02/15/17 04:06 BUN/Creatinine Ratio 16 (6-26) 02/15/17 04:06 Glucose 118 mg/dL (70-99) H 02/15/17 04:06 POC Glucose 118 (58-89) H 02/14/17 23:59 Est Mean Plasma Glucose 140 mg/dl 02/15/17 04:06 Hemoglobin A1c 6.5 % (-5.6) H 02/15/17 04:06 Calculated Osmolality 290 (280-300) 02/15/17 04:06 Calcium 9.6 mg/dL (8.6-10.8) 02/15/17 04:06 Magnesium 2.1 mg/dL (1.6-2.6) 02/15/17 04:06 Iron 26 mcg/dL (65-175) L 02/15/17 04:06 % Saturation 5 % (20-55) L 02/15/17 04:06 Transferrin 342 mg/dL (174-364) 02/15/17 04:06 Troponin I 0.03 ng/mL (0-0.03) 02/15/17 04:06 Triglycerides 191 mg/dL (< 150) H 02/15/17 04:06 Cholesterol 127 mg/dL (< 200) 02/15/17 04:06 LDL Cholesterol, Calc 56 mg/dL (0-99) 02/15/17 04:06 VLDL Cholesterol, Calc 38 mg/dL (< 31) H 02/15/17 04:06 HDL Cholesterol 33 mg/dL (40-59) L 02/15/17 04:06 Cholesterol/HDL Ratio 3.8 (0-4.9) 02/15/17 04:06 Consult Discharge Plan - Plan [facility]errals: [facility] [Primary Care Provider] -
--- NOTE | 2017-02-15 17:20 | Internal Med Progress Note ---
Date of Encounter: 02/15/17 Time of Encounter: 08:50 - Assessment and plan (1) Depression, major, recurrent, mild Current Visit: Yes Status: Acute Assessment and plan: Major recurrent depression - stable, currently nonsuicidal Psychiatry has evaluated patient and recommended outpatient psychiatry follow- up at the [facility] Home meds including Celexa and trazodone Anticipate discharge to [facility] in a.m. (2) Suicidal ideation Current Visit: Yes Status: Acute Assessment and plan: Patient is currently not having any suicidal ideations - stable Patient has been cleared by psychiatry, discharged to [facility] in a.m. (3) Chest pain Current Visit: Yes Status: Acute Assessment and plan: Atypical chest pain - now resolved Cardiology consult - recommendations reviewed, appreciated, no further cardiac workup at this time EKG - sinus rhythm with no acute ST-T changes Troponin - 0.03, peak 0.05 Chest x-ray - no acute cardiopulmonary disease Echocardiogram - LVEF 60%, normal LV size and function, normal RV size and function Cardiac telemetry, anticipate discharge in a.m. Qualifiers: Chest pain type: unspecified Qualified Code(s): R07.9 - Chest pain, unspecified (4) COPD (chronic obstructive pulmonary disease) Current Visit: Yes Status: Chronic Assessment and plan: Mild acute COPD exacerbation - now improved Continue DuoNeb breathing treatment, Symbicort Qualifiers: COPD type: COPD with acute exacerbation Qualified Code(s): J44.1 - Chronic obstructive pulmonary disease with (acute) exacerbation (5) Diabetes Current Visit: No Status: Chronic Assessment and plan: Diabetes mellitus type 2, insulin-dependent, hyperglycemia Continue insulin sliding scale, glucose checks, Levemir Qualifiers: Diabetes mellitus type: type 2 Diabetes mellitus complication status: with unspecified complications Diabetes mellitus correction insulin use: unspecified correction insulin use status Qualified Code(s): E11.8 - Type 2 diabetes mellitus with unspecified complications (6) Hyperlipemia Current Visit: No Status: Chronic Assessment and plan: Continue simvastatin Qualifiers: Hyperlipidemia type: unspecified Qualified Code(s): E78.5 - Hyperlipidemia , unspecified (7) Morbid obesity Current Visit: No Status: Chronic Assessment and plan: BMI 42.9 (8) HTN (hypertension) Current Visit: Yes Status: Chronic Assessment and plan: Essential hypertension, controlled, continue home meds, monitor Qualifiers: Hypertension type: essential hypertension Qualified Code(s): I10 - Essential (primary) hypertension (9) DVT prophylaxis Current Visit: Yes Status: Acute Assessment and plan: Continue heparin subcutaneous - Time Spent With Patient 25 - 35 minutes - Subjective Interval history: Examined this morning. Patient is awake and alert. Not in any distress. Denies any chest pain or shortness of breath. No fever. Hemodynamically stable. Denies abdominal pain or vomiting. Admitted last night for chest pain and suicidal ideation and slightly elevated troponin. No other acute events or complaints. Psychiatry has been on your patient recommended outpatient follow-up with psychiatry at the [facility]. Cardiology is also evaluated patient and recommended no further cardiac workup at this time. Anticipate discharge back to [facility] tomorrow. - Constitutional Vitals: Temp Pulse Resp BP Pulse Ox 98.3 F 79 16 126/84 96 02/15/17 15:49 02/15/17 15:49 02/15/17 15:57 02/15/17 15:49 02/15/17 15:57 General appearance: Present: cooperative, A&O X 3, morbidly obese, pleasant, no acute distress, answers questions appropriately - Head Head exam: Present: atraumatic - Eye Eye exam: Present: EOMI - ENT ENT exam: Present: mucous membranes moist - Respiratory Respiratory exam: Present: CTAB. Absent: rales, rhonchi, wheezes, tachypnea - Cardiovascular Cardiovascular exam: Present: RRR, +S1, +S2 - GI/Abdominal GI/Abdominal exam: Present: distended (Patient has a massive ventral hernia), soft. Absent: firm, guarding, tenderness - Extremities Exam Extremities exam: Present: radial pulses palpable and symmetrical. Absent: cyanotic, pedal edema - Neurological Exam Neurological exam: Present: alert, oriented X3, no focal deficits. Absent: facial droop, speech deficit Internal Medicine: Result - Labs CBC & Chem 7: 02/15/17 04:06 02/15/17 04:06 Labs: Short CBC 02/15/17 Range/Units 04:06 WBC 10.7 (4.3-11.1) K/mcL Hgb 9.4 L (12.9-16.9) g/dL Hct 32.4 L (37.5-50.1) % Plt Count 239 (140-400) K/mcL Neutrophils # 7.6 (1.6-8.9) K/mcL BMP 02/15/17 04:06 Sodium 138 Potassium 4.3 Chloride 101 Carbon Dioxide 30 H BUN 21 Creatinine 1.31 H Glucose 118 H Calcium 9.6 Cardiac Enzymes 02/14/17 02/15/17 Range/Units 21:03 04:06 Troponin I 0.05 H* 0.03 (0-0.03) ng/mL - ABG Interpretation ABG results: PT/INR, D-dimer PT 12.9 Seconds (9.4-12.1) H 02/15/17 04:06 Consult Discharge Plan - Plan [facility]errals: [facility] [Primary Care Provider] -
--- NOTE | 2017-02-15 18:04 | Electrocardiograph Report ---
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
[2017-02-15] MEDS: Cyanocobalamin (B-12) 1,000 MCG TABLET PO SCH (18:22)
[2017-02-15] MEDS: Budesonide/Formoterol 160/4.5 MDI IH SCH (19:37)
[2017-02-15] MEDS: traZODone 50 MG TABLET PO SCH (21:13)
[2017-02-15] MEDS: Insulin DETEMIR 100 UNIT/ML X5UNITS SQ SCH (21:13)
[2017-02-16] MEDS: Ipratropium/Albuterol Neb 3 ML IH SCH ×6 (04:22→23:11)
[2017-02-16] MEDS: *HR* Heparin 5,000 UNIT/ML VIAL SQ SCH ×2 (05:43→18:03)
[2017-02-16] MEDS: Budesonide/Formoterol 160/4.5 MDI IH SCH ×2 (07:33→20:03)
[2017-02-16 08:08] LABS: Mean Platelet Volume 9.2 fL (9.4-12.4)
[2017-02-16 08:09] LABS: Basophils % 0.3 %; Eosinophils # 0.2 K/mcL (0.0-0.6); Eosinophils % 2.4 %; Hemoglobin 9.8 g/dL (12.9-16.9); Immature Granulocytes % 0.4 % (0-4); Lymphocytes # 1.5 K/mcL (0.6-4.6); Lymphocytes % 15.1 %; Mean Corpuscular HGB Conc 29.7 g/dL (31.6-35.5); Mean Corpuscular Hemoglobin 21.9 pg (28.0-33.3); Mean Corpuscular Volume 73.8 fL (83.0-100.0); Monocytes # 0.8 K/mcL (0.0-1.3); Monocytes % 8.3 %; Neutrophils # 7.3 K/mcL (1.6-8.9); Platelet Count 248 K/mcL (140-400); Red Blood Count 4.47 M/mcL (4.19-5.50); Red Cell Distribution Width 16.5 % (11.5-14.5); Segmented Neutrophils % 73.5 %
[2017-02-16 08:45] LABS: BUN/Creatinine Ratio 14 (6-26); Blood Urea Nitrogen 19 mg/dL (8-26); Calcium 9.7 mg/dL (8.6-10.8); Carbon Dioxide 29 mEq/L (19-29); Chloride 100 mEq/L (98-109); Glucose 130 mg/dL (70-99); Osmolality,Calculated 288 (280-300); Potassium 4.3 mEq/L (3.5-4.5); Sodium 137 mEq/L (136-145); eGFR For African Americans > 60 (> 60); eGFR For Non-African Americans 54 (> 60)
[2017-02-16 08:56] LABS: Anisocytosis 1+ (Not Present); Hypochromasia Present (Not Present); Platelet Estimate Normal (Normal)
[2017-02-16] MEDS: hydroCHLOROthiazide 25 MG TABLET PO SCH (09:18)
[2017-02-16] MEDS: Aspirin Enteric Coated 81 MG Tablet PO SCH (09:18)
[2017-02-16] MEDS: Pantoprazole 40 MG VIAL IVP SCH ×2 (09:19→21:04)
[2017-02-16] MEDS: Finasteride 5 MG TABLET PO SCH (09:19)
[2017-02-16] MEDS: Insulin LISPRO 300 UNITS/3 ML VIAL SQ SCH ×4 (09:24→21:04)
--- NOTE | 2017-02-16 15:23 | Internal Med Progress Note ---
Date of Encounter: 02/16/17 Time of Encounter: 15:21 - Assessment and plan (1) Anemia Current Visit: Yes Status: Acute Assessment and plan: Patient's hemoglobin in 2016 was noted to be around 14 and is currently around 9. Microcytic anemia. He does not report any symptoms of overt GI bleed. Check stool for occult blood. GI consult for possible EGD and colonoscopy. Iron profile shows low iron and resume, start oral ferrous sulfate supplements. Qualifiers: Anemia type: iron deficiency Iron deficiency anemia type: unspecified iron deficiency Qualified Code(s): D50.9 - Iron deficiency anemia, unspecified (2) Chest pain Current Visit: Yes Status: Acute Assessment and plan: Admitted with intermittent retrosternal chest pain, currently resolved. Serial troponins noted to be flat and adynamic, less likely ACS. Cardiology consult appreciated, recommended no further inpatient testing. Echocardiogram shows preserved ejection fraction with no wall motion abnormalities. Qualifiers: Chest pain type: unspecified Qualified Code(s): R07.9 - Chest pain, unspecified (3) COPD (chronic obstructive pulmonary disease) Current Visit: Yes Status: Chronic Assessment and plan: Not in acute exacerbation. Continue when necessary bronchodilators and supplemental oxygen. Qualifiers: COPD type: unspecified COPD Qualified Code(s): J44.9 - Chronic obstructive pulmonary disease, unspecified (4) Diabetes Current Visit: Yes Status: Chronic Assessment and plan: Accu-Chek blood glucose monitoring with sliding scale insulin. Diabetic diet. Qualifiers: Diabetes mellitus type: type 2 Diabetes mellitus complication status: with unspecified complications Diabetes mellitus detention insulin use: without terminal manager use Qualified Code(s): E11.8 - Type 2 diabetes mellitus with unspecified complications (5) HLD (hyperlipidemia) Current Visit: Yes Status: Chronic Qualifiers: Hyperlipidemia type: unspecified Qualified Code(s): E78.5 - Hyperlipidemia , unspecified (6) GERD (gastroesophageal reflux disease) Current Visit: Yes Status: Chronic Qualifiers: Esophagitis presence: esophagitis presence not specified Qualified Code(s) : K21.9 - Gastro-esophageal reflux disease without esophagitis (7) Suicidal ideation Current Visit: Yes Status: Acute Assessment and plan: Patient was admitted at the [place] inpatient psychiatry unit for suicidal ideation and being treated for major depression. Has been evaluated by psychiatric here and cleared for discharge. Denies suicidal ideation at this time. Continue home medications. (8) CHF (congestive heart failure) Current Visit: Yes Status: Chronic Qualifiers: Congestive heart failure type: diastolic Congestive heart failure chronicity: chronic Qualified Code(s): I50.32 - Chronic diastolic (congestive ) heart failure (9) Depression, major, recurrent, mild Current Visit: Yes Status: Chronic - Subjective Interval history: Feels well; improved chest pain, no dyspnea, abdominal pain; denies hematochezia , melena, nausea, vomiting; - Constitutional Vitals: Temp Pulse Resp BP Pulse Ox 98.1 F 85 17 131/77 94 02/16/17 15:00 02/16/17 15:00 02/16/17 15:00 02/16/17 15:00 02/16/17 15:00 General appearance: Present: A&O X 3, morbidly obese, answers questions appropriately - Respiratory Respiratory exam: Present: CTAB. Absent: accessory muscle use, rales, rhonchi, wheezes - Cardiovascular Cardiovascular exam: Present: RRR, +S1, +S2. Absent: diastolic murmur, gallop, rubs, systolic murmur - GI/Abdominal GI/Abdominal exam: Present: normal bowel sounds, soft (ventral hernia+, nontender), no peritoneal signs. Absent: distended, tenderness Internal Medicine: Result - Labs CBC & Chem 7: 02/16/17 07:43 02/16/17 07:43 Labs: Short CBC 02/16/17 Range/Units 07:43 WBC 9.9 (4.3-11.1) K/mcL Hgb 9.8 L (12.9-16.9) g/dL Hct 33.0 L (37.5-50.1) % Plt Count 248 (140-400) K/mcL Neutrophils # 7.3 (1.6-8.9) K/mcL BMP 02/16/17 07:43 Sodium 137 Potassium 4.3 Chloride 100 Carbon Dioxide 29 BUN 19 Creatinine 1.33 H Glucose 130 H Calcium 9.7 - ABG Interpretation ABG results: PT/INR, D-dimer PT 12.9 Seconds (9.4-12.1) H 02/15/17 04:06 Consult Discharge Plan - Plan [facility] [Primary Care Provider] -
--- NOTE | 2017-02-16 18:30 | Electrocardiograph Report ---
[place] [id number] Test Date: 2017-02-15 Pat Name: Shaquille Martin Department: 113 Room: [facility] Gender: M [employer] Sales Consultant: : 1950 Requested By: Mandy Palma Order Number: [id number] Reading MD: Idalia Boyle Measurements Intervals [place] Rate: 83 P: 56 MI: 158 QRS: -5 QRSD: 81 T: 82 QT: 359 QTc: 399 Interpretive Statements SINUS RHYTHM NONSPECIFIC T-WAVE ABNORMALITY Electronically Signed On 02-16-2017 18:29:09 EDT by Idalia Boyle
[2017-02-16] MEDS: Insulin DETEMIR 100 UNIT/ML X5UNITS SQ SCH (21:03)
[2017-02-16] MEDS: traZODone 50 MG TABLET PO SCH (21:03)
[2017-02-17] MEDS: Ipratropium/Albuterol Neb 3 ML IH SCH ×6 (03:36→22:49)
[2017-02-17] MEDS: *HR* Heparin 5,000 UNIT/ML VIAL SQ SCH ×2 (06:19→18:34)
[2017-02-17] MEDS: Budesonide/Formoterol 160/4.5 MDI IH SCH ×2 (07:54→20:31)
[2017-02-17] MEDS: hydroCHLOROthiazide 25 MG TABLET PO SCH (09:14)
[2017-02-17] MEDS: Aspirin Enteric Coated 81 MG Tablet PO SCH (09:14)
[2017-02-17] MEDS: Finasteride 5 MG TABLET PO SCH (09:15)
[2017-02-17] MEDS: Pantoprazole 40 MG VIAL IVP SCH ×2 (09:15→21:43)
[2017-02-17] MEDS: Insulin LISPRO 300 UNITS/3 ML VIAL SQ SCH ×4 (09:16→21:43)
--- NOTE | 2017-02-17 11:26 | Gastroenterology Consult Note ---
<Shaquille Alfonso Ariadna - Last Filed: 02/17/17 11:24> Date of Encounter: 02/17/17 Time of Encounter: 10:40 - Assessment and plan (1) ELISE (iron deficiency anemia) Current Visit: Yes Status: Acute Assessment and plan: His hemoglobin was 14.7 on 02/06/2016. On admission Hgb 9.6 and this AM Hgb 9.8. His iron is low at 26. Plan for EGD tomorrow to r/o esophagitis, gastritis , duodenitis, PUD, MW tear, or AVM. Keep patient NPO at midnight. Check ferritin and celiac panel. Qualifiers: Iron deficiency anemia type: unspecified iron deficiency Qualified Code(s) : D50.9 - Iron deficiency anemia, unspecified (2) COPD (chronic obstructive pulmonary disease) Current Visit: Yes Status: Chronic Assessment and plan: Management per primary team. Qualifiers: COPD type: COPD with acute exacerbation Qualified Code(s): J44.1 - Chronic obstructive pulmonary disease with (acute) exacerbation (3) GERD (gastroesophageal reflux disease) Current Visit: Yes Status: Chronic Assessment and plan: Continue PPI. Qualifiers: Esophagitis presence: esophagitis presence not specified Qualified Code(s) : K21.9 - Gastro-esophageal reflux disease without esophagitis (4) Morbid obesity Current Visit: No Status: Chronic - Time Spent With Patient Total time spent is greater than 50% in coordination of care (as documented) at patient's floor/unit and/or counseling patient: GI History of Present Illness - Data of Consult Patient: known to practice within the last 3 years Consult date: 02/17/17 Requesting Physician: Mandy Palma MD - Consult Narrative Reason for consult: Microcytic iron deficiency anemia History of present illness: Mr. Martin is a 66 year old male with PMHx of CHF, COPD, DM, GERD, hyperlipidemia, HTN who presented from the [place] [facility] due to chest pain. [place] for suicidal ideations with plan. He denies fever, chills, abdominal pain, nausea, vomiting, constipation, diarrhea, melena , hematochezia. Cardiology was consulted due to troponin elevation to 0.05. We have been consulted due to his microcytic iron deficiency anemia. On admission Hgb 9.6 and this AM Hgb 9.8. His hemoglobin was 14.7 on 02/06/2016. His iron is low at 26. Procedures: Colonoscopy 05/07/2016 Dr. Li: Diverticulosis sigmoid colon, descending colon, and transverse colon. 4 mm tubular adenoma in the cecum. Recommended to repeat in 5 years. NSAIDs: ASA Anticoagulation: None Past Med Surg Social Fam HX - Past Medical History Medical history: CHF, COPD, diabetes, GERD, hyperlipidemia, hypertension, renal disease Psychiatric history: depression, previous psychiatric hospitalization - Past Surgical History Surgical History: cholecystectomy, other (Tonsillectomy) - Social History Smoking Status: Former smoker Packs per day: 1 PPD - reports quitting in 1970 Smokeless Tobacco Status: No Alcohol use: none Drug use: none - Family History Mother Race: Family Member Ethnicity: Non- Living Status: Age at : 79 Cause of : Stroke Hx Family Cardiac Disorders: Yes (Stroke) Brother Race: Family Member Ethnicity: Non- Living Status: Still Living Hx Family Medical Disorders: No Sister Race: Family Member Ethnicity: Non- Living Status: Still Living Hx Family Medical Disorders: No Father Name: Phillip Martin Race: Family Member Ethnicity: Non- Living Status: Age at : 80 Cause of : IN Hx Family Cardiac Disorders: Yes (IN, HTN) Hx Family Respiratory Disorders: No Hx Family Cancer: No Hx Family GI Disorders: No Hx Family Genitourinary Disorders: No Hx Family Endocrine Disorder: No Hx Family Musculoskeletal Disorders: No Hx Family Neuromuscular Disorders: No Hx Family Neurologic Disorders: No Hx Family HEENT Disorders: No Hx Family Autoimmune Disorders: No Hx Family Reproductive Disorders: No Hx Family Psychosocial Disorders: No - Gastrointestinal Gastrointestinal: Present: as per HPI - Constitutional Constitutional: as per HPI - EENT Eyes: as per HPI Ears: Present: as per HPI Nose, mouth and throat: Present: as per HPI - Cardiovascular Cardiovascular ROS: Present: as per HPI - Respiratory Respiratory IM: Present: as per HPI - Genitourinary Genitourinary: Absent: change in color, Urinary frequency - Neurological ROS Neurological GI: Present: as per HPI - Hematologic/Lymphatic Hematologic/Lymphatic pediatric: Present: as per HPI - Musculoskeletal Musculoskeletal ROS GI: Present: as per HPI - Integumentary Integumentary GI: Present: as per HPI - Psychiatric ROS Psychiatric GI: Present: as per HPI - Endocrine Endocrine IM: Present: as per HPI - Constitutional Vitals: Temp Pulse Resp BP Pulse Ox 97.7 F 66 18 133/78 94 02/17/17 06:59 02/17/17 06:59 02/17/17 07:54 02/17/17 06:59 02/17/17 07:54 General appearance: Present: cooperative, A&O X 3, no acute distress, answers questions appropriately - Head Head exam: Present: atraumatic, normocephalic - Eye Eye exam: Present: normal appearance, sclera anicteric - ENT ENT exam: Present: mucous membranes dry - Neck Neck exam general surgery: Present: normal inspection, trachea midline - Respiratory Respiratory exam: Present: decreased breath sounds, CTAB - Cardiovascular Cardiovascular exam: Present: RRR, +S1, +S2 - GI/Abdominal GI/Abdominal exam: Present: hernia (Massive ventral hernia), soft, no peritoneal signs. Absent: distended, firm, guarding, tenderness - Rectal Rectal exam: Present: deferred - Extremities Exam Extremities exam: Present: warm - Neurological Exam Neurological exam: Present: no focal deficits - Psychiatric Psychiatric exam: Present: normal affect, normal mood - Skin Skin exam: Present: dry, intact, normal color, warm Results - Labs CBC & Chem 7: 02/16/17 07:43 02/16/17 07:43 Labs: Last Result Calcium 9.7 mg/dL (8.6-10.8) 02/16/17 07:43 Iron 26 mcg/dL (65-175) L 02/15/17 04:06 % Saturation 5 % (20-55) L 02/15/17 04:06 Transferrin 342 mg/dL (174-364) 02/15/17 04:06 Troponin I 0.03 ng/mL (0-0.03) 02/15/17 04:06 Triglycerides 191 mg/dL (< 150) H 02/15/17 04:06 Entire Visit Hgb 9.8 g/dL (12.9-16.9) L 02/16/17 07:43 Hct 33.0 % (37.5-50.1) L 02/16/17 07:43 PT 12.9 Seconds (9.4-12.1) H 02/15/17 04:06 - ABG ABG results: PT/INR, D-dimer PT 12.9 Seconds (9.4-12.1) H 02/15/17 04:06 Consult Discharge Plan - Plan [facility]errals: [facility] [Primary Care Provider] - <Sheba Alvarez - Last Filed: 02/17/17 18:06> Date of Encounter: 02/17/17 Time of Encounter: 17:30 - Time Spent With Patient Total time spent is greater than 50% in coordination of care (as documented) at patient's floor/unit and/or counseling patient: GI History of Present Illness - Data of Consult Requesting Physician: Mandy Palma MD - Consult Narrative History of present illness: Mr. Martin is a 66 year old male - Constitutional Vitals: Temp Pulse Resp BP Pulse Ox 97.4 F L 69 20 119/74 100 02/17/17 15:59 02/17/17 15:59 02/17/17 15:59 02/17/17 15:59 02/17/17 15:59 Results - Labs CBC & Chem 7: 02/16/17 07:43 02/16/17 07:43 Labs: Last Result Calcium 9.7 mg/dL (8.6-10.8) 02/16/17 07:43 Iron 26 mcg/dL (65-175) L 02/15/17 04:06 % Saturation 5 % (20-55) L 02/15/17 04:06 Transferrin 342 mg/dL (174-364) 02/15/17 04:06 Ferritin 12 ng/ml (22-275) L 02/17/17 10:21 Troponin I 0.03 ng/mL (0-0.03) 02/15/17 04:06 Triglycerides 191 mg/dL (< 150) H 02/15/17 04:06 Entire Visit Hgb 9.8 g/dL (12.9-16.9) L 02/16/17 07:43 Hct 33.0 % (37.5-50.1) L 02/16/17 07:43 PT 12.9 Seconds (9.4-12.1) H 02/15/17 04:06 Ferritin 12 ng/ml (22-275) L 02/17/17 10:21 - ABG ABG results: PT/INR, D-dimer PT 12.9 Seconds (9.4-12.1) H 02/15/17 04:06 - Attending Attestation I examined this patient and my medical decision-making was reviewed with the Resident Physician. I agree with the documented findings, disposition and treatment plan as described except to the extent set forth below. Severe iron deficiency anemia. Had a colonoscopy done in April [address] Mehta Recommodation: EGD and if negative then capsule endoscopy as an outpatient
--- NOTE | 2017-02-17 13:34 | Internal Med Progress Note ---
Date of Encounter: 02/17/17 Time of Encounter: 13:33 - Assessment and plan (1) Chest pain Current Visit: Yes Status: Resolved Qualifiers: Chest pain type: unspecified Qualified Code(s): R07.9 - Chest pain, unspecified (2) Anemia Current Visit: Yes Status: Acute Assessment and plan: Patient's hemoglobin in 2016 was noted to be around 14 and is currently around 9. Microcytic anemia. He does not report any symptoms of overt GI bleed. Check stool for occult blood. GI consult noted, plan for possible EGD in a.m. Iron profile shows low iron and resume, start oral ferrous sulfate supplements. Check serum vitamin B12 and folate levels. Qualifiers: Anemia type: iron deficiency Iron deficiency anemia type: unspecified iron deficiency Qualified Code(s): D50.9 - Iron deficiency anemia, unspecified (3) COPD (chronic obstructive pulmonary disease) Current Visit: Yes Status: Chronic Assessment and plan: Not in acute exacerbation. Continue when necessary bronchodilators and supplemental oxygen. Qualifiers: COPD type: unspecified COPD Qualified Code(s): J44.9 - Chronic obstructive pulmonary disease, unspecified (4) Diabetes Current Visit: Yes Status: Chronic Assessment and plan: Accu-Chek blood glucose monitoring with sliding scale insulin. Diabetic diet. Qualifiers: Diabetes mellitus type: type 2 Diabetes mellitus complication status: with unspecified complications Diabetes mellitus mcfp insulin use: without terminologist use Qualified Code(s): E11.8 - Type 2 diabetes mellitus with unspecified complications (5) HLD (hyperlipidemia) Current Visit: Yes Status: Chronic Qualifiers: Hyperlipidemia type: unspecified Qualified Code(s): E78.5 - Hyperlipidemia , unspecified (6) GERD (gastroesophageal reflux disease) Current Visit: Yes Status: Chronic Qualifiers: Esophagitis presence: esophagitis presence not specified Qualified Code(s) : K21.9 - Gastro-esophageal reflux disease without esophagitis (7) Suicidal ideation Current Visit: Yes Status: Acute (8) CHF (congestive heart failure) Current Visit: Yes Status: Chronic Qualifiers: Congestive heart failure type: diastolic Congestive heart failure chronicity: chronic Qualified Code(s): I50.32 - Chronic diastolic (congestive ) heart failure (9) Depression, major, recurrent, mild Current Visit: Yes Status: Chronic - Subjective Interval history: Feels well; improved chest pain, no dyspnea, abdominal pain; denies hematochezia , melena, nausea, vomiting; no bowel movements; scheduled for EGD in am; - Constitutional Vitals: Temp Pulse Resp BP Pulse Ox 97.6 F 63 24 142/81 95 02/17/17 11:46 02/17/17 11:46 02/17/17 11:46 02/17/17 11:46 02/17/17 11:46 General appearance: Present: A&O X 3, morbidly obese, answers questions appropriately - Respiratory Respiratory exam: Present: CTAB. Absent: accessory muscle use, rales, rhonchi, wheezes - Cardiovascular Cardiovascular exam: Present: RRR, +S1, +S2. Absent: diastolic murmur, gallop, rubs, systolic murmur - GI/Abdominal GI/Abdominal exam: Present: normal bowel sounds, soft, no peritoneal signs. Absent: distended, tenderness Internal Medicine: Result - Labs CBC & Chem 7: 02/16/17 07:43 02/16/17 07:43 - ABG Interpretation ABG results: PT/INR, D-dimer PT 12.9 Seconds (9.4-12.1) H 02/15/17 04:06 Consult Discharge Plan - Plan [facility]: [facility] [Primary Care Provider] -
[2017-02-17] MEDS: Cyanocobalamin (B-12) 1,000 MCG TABLET PO SCH (18:35)
[2017-02-17] MEDS: traZODone 50 MG TABLET PO SCH (21:42)
[2017-02-17] MEDS: Sennosides/Docusate Sodium TABLET PO SCH (21:43)
[2017-02-17] MEDS: Insulin DETEMIR 100 UNIT/ML X5UNITS SQ SCH (21:43)
[2017-02-18] MEDS: Ipratropium/Albuterol Neb 3 ML IH SCH ×6 (04:56→22:51)
[2017-02-18] MEDS: *HR* Heparin 5,000 UNIT/ML VIAL SQ SCH ×2 (05:45→18:04)
[2017-02-18 07:08] LABS: Folate 12.4 ng/mL (7.0-31.4)
[2017-02-18] MEDS: Budesonide/Formoterol 160/4.5 MDI IH SCH ×2 (07:51→20:01)
[2017-02-18] MEDS ORDERED: *HR* Midazolam HCl 5 MG/5 ML VIAL IVP ONE (08:12)
[2017-02-18] MEDS ORDERED: *HR* FentaNYL (PF) 100 MCG/2 ML VIAL ONE (08:12)
[2017-02-18] MEDS ORDERED: *HR* Midazolam HCl 5 MG/5 ML VIAL IVP PRN (08:24)
[2017-02-18] MEDS ORDERED: Simethicone 40 MG/0.6 ML MLS IR ONE (08:24)
[2017-02-18] MEDS ORDERED: *HR* FentaNYL (PF) 100 MCG/2 ML VIAL IVP PRN (08:24)
[2017-02-18] MEDS ORDERED: Tetracaine/Benzocaine/Butamben 200MG/SPRAY (100SPY/BOT) MM ONE (08:24)
--- NOTE | 2017-02-18 08:25 | Pre-Sedation Evaluation ---
Pre-sedation evaluation - Pre-sedation checklist Date of procedure: 02/18/17 Procedure: colon Recent Vitals: Last Vital Signs Temp 97.7 F 02/18/17 07:19 Pulse 75 02/18/17 07:19 Resp 16 02/18/17 07:50 BP 131/79 02/18/17 07:19 Pulse Ox 98 02/18/17 07:50 H&P (including ROS) documented in medical record: No Previous reaction to sedatives/anesthetics: Yes; explain in comment Dietary Status: NPO after Midnight Dentition: dentures removed ASA Classification *see protocol: CLASS III-Severe systemic disease
[2017-02-18] MEDS: Insulin LISPRO 300 UNITS/3 ML VIAL SQ SCH ×4 (11:42→20:42)
[2017-02-18] MEDS: Aspirin Enteric Coated 81 MG Tablet PO SCH (11:48)
[2017-02-18] MEDS: hydroCHLOROthiazide 25 MG TABLET PO SCH (11:48)
[2017-02-18] MEDS: Pantoprazole 40 MG VIAL IVP SCH ×2 (11:49→20:43)
[2017-02-18] MEDS: Finasteride 5 MG TABLET PO SCH (11:49)
[2017-02-18] MEDS: Sennosides/Docusate Sodium TABLET PO SCH ×2 (11:49→20:42)
--- NOTE | 2017-02-18 17:05 | Internal Med Progress Note ---
Date of Encounter: 02/18/17 Time of Encounter: 13:15 - Assessment and plan (1) Chest pain Current Visit: Yes Status: Resolved Qualifiers: Chest pain type: unspecified Qualified Code(s): R07.9 - Chest pain, unspecified (2) Anemia Current Visit: Yes Status: Acute Assessment and plan: Patient's hemoglobin in 2016 was noted to be around 14 and is currently around 9. Microcytic anemia. He does not report any symptoms of overt GI bleed. Check stool for occult blood, still pending. GI consult noted, underwent EGD today-shows mild gastritis and gastric polyps, no active bleeding. Iron profile shows low iron reserve, start oral ferrous sulfate supplements. serum vitamin B12 and folate levels WNL. Patient is medically stable for discharge, however he is not accepted by [facility] due to having undergone a procedure today. Anticipate discharge in a.m. Qualifiers: Anemia type: iron deficiency Iron deficiency anemia type: unspecified iron deficiency Qualified Code(s): D50.9 - Iron deficiency anemia, unspecified (3) COPD (chronic obstructive pulmonary disease) Current Visit: Yes Status: Chronic Assessment and plan: Not in acute exacerbation. Continue when necessary bronchodilators and supplemental oxygen. Qualifiers: COPD type: unspecified COPD Qualified Code(s): J44.9 - Chronic obstructive pulmonary disease, unspecified (4) Diabetes Current Visit: Yes Status: Chronic Assessment and plan: Accu-Chek blood glucose monitoring with sliding scale insulin. Diabetic diet. Qualifiers: Diabetes mellitus type: type 2 Diabetes mellitus complication status: with unspecified complications Diabetes mellitus jail insulin use: without jail use Qualified Code(s): E11.8 - Type 2 diabetes mellitus with unspecified complications (5) HLD (hyperlipidemia) Current Visit: Yes Status: Chronic Qualifiers: Hyperlipidemia type: unspecified Qualified Code(s): E78.5 - Hyperlipidemia , unspecified (6) GERD (gastroesophageal reflux disease) Current Visit: Yes Status: Chronic Qualifiers: Esophagitis presence: esophagitis presence not specified Qualified Code(s) : K21.9 - Gastro-esophageal reflux disease without esophagitis (7) Suicidal ideation Current Visit: Yes Status: Acute Assessment and plan: Patient was admitted at the [place] inpatient psychiatry unit for suicidal ideation and being treated for major depression. Has been evaluated by psychiatric here and cleared for discharge. Denies suicidal ideation at this time. Continue home medications. Plan to be transferred back to the inpatient psychiatric unit. (8) CHF (congestive heart failure) Current Visit: Yes Status: Chronic Qualifiers: Congestive heart failure type: diastolic Congestive heart failure chronicity: chronic Qualified Code(s): I50.32 - Chronic diastolic (congestive ) heart failure (9) Depression, major, recurrent, mild Current Visit: Yes Status: Chronic - Subjective Interval history: Feels well; improved chest pain, no dyspnea, abdominal pain; denies hematochezia , melena, nausea, vomiting; no bowel movements; underwent EGD today; - Constitutional Vitals: Temp Pulse Resp BP Pulse Ox 98.2 F 75 17 143/77 93 02/18/17 16:04 02/18/17 16:04 02/18/17 16:04 02/18/17 16:04 02/18/17 16:04 General appearance: Present: A&O X 3, morbidly obese, answers questions appropriately - Respiratory Respiratory exam: Present: CTAB. Absent: accessory muscle use, rales, rhonchi, wheezes - Cardiovascular Cardiovascular exam: Present: RRR, +S1, +S2. Absent: diastolic murmur, gallop, rubs, systolic murmur - GI/Abdominal GI/Abdominal exam: Present: normal bowel sounds, soft, no peritoneal signs. Absent: distended, tenderness Internal Medicine: Result - Labs CBC & Chem 7: 02/16/17 07:43 02/16/17 07:43 - ABG Interpretation ABG results: PT/INR, D-dimer PT 12.9 Seconds (9.4-12.1) H 02/15/17 04:06 Consult Discharge Plan - Plan [facility]errals: [facility] [Primary Care Provider] -
[2017-02-18] MEDS: traZODone 50 MG TABLET PO SCH (20:42)
[2017-02-18] MEDS: Artificial Tears SOLN 15 ML BOTTLE BOTH EYES PRN (20:43)
[2017-02-18] MEDS: Insulin DETEMIR 100 UNIT/ML X5UNITS SQ SCH (20:43)
[2017-02-19] MEDS: Ipratropium/Albuterol Neb 3 ML IH SCH ×6 (03:50→23:05)
[2017-02-19] MEDS: *HR* Heparin 5,000 UNIT/ML VIAL SQ SCH ×2 (06:06→18:08)
[2017-02-19] MEDS: Budesonide/Formoterol 160/4.5 MDI IH SCH ×2 (07:33→19:52)
[2017-02-19] MEDS: Pantoprazole 40 MG VIAL IVP SCH (08:12)
[2017-02-19] MEDS: hydroCHLOROthiazide 25 MG TABLET PO SCH (08:12)
[2017-02-19] MEDS: Sennosides/Docusate Sodium TABLET PO SCH ×2 (08:12→20:31)
[2017-02-19] MEDS: Aspirin Enteric Coated 81 MG Tablet PO SCH (08:12)
[2017-02-19] MEDS: Finasteride 5 MG TABLET PO SCH (08:12)
[2017-02-19] MEDS: Insulin LISPRO 300 UNITS/3 ML VIAL SQ SCH ×4 (08:12→20:31)
[2017-02-19 08:24] LABS: Immunoglobulin A (CELIAC) 278 mg/dL (68-408)
[2017-02-19 08:32] LABS: Tissue Transglutaminase IgA 1 U/mL (0-3)
[2017-02-19] MEDS ORDERED: Bisacodyl 10 MG RECTAL SUPPOSITORY RC ONE (13:09)
--- NOTE | 2017-02-19 13:11 | Discharge Summary ---
Date of Encounter: 02/19/17 Time of Encounter: 13:08 - Discharge Diagnosis (1) Chest pain Priority: Primary Status: Resolved Qualifiers: Chest pain type: unspecified Qualified Code(s): R07.9 - Chest pain, unspecified (2) Anemia Priority: Primary Status: Acute Qualifiers: Anemia type: iron deficiency Iron deficiency anemia type: unspecified iron deficiency Qualified Code(s): D50.9 - Iron deficiency anemia, unspecified (3) COPD (chronic obstructive pulmonary disease) Priority: Secondary Status: Chronic Qualifiers: COPD type: unspecified COPD Qualified Code(s): J44.9 - Chronic obstructive pulmonary disease, unspecified (4) Diabetes Priority: Secondary Status: Chronic Qualifiers: Diabetes mellitus type: type 2 Diabetes mellitus complication status: with unspecified complications Diabetes mellitus buttermaker continuous churn insulin use: without buttermaker continuous churn use Qualified Code(s): E11.8 - Type 2 diabetes mellitus with unspecified complications (5) HLD (hyperlipidemia) Priority: Secondary Status: Chronic Qualifiers: Hyperlipidemia type: unspecified Qualified Code(s): E78.5 - Hyperlipidemia , unspecified (6) GERD (gastroesophageal reflux disease) Priority: Secondary Status: Chronic Qualifiers: Esophagitis presence: esophagitis presence not specified Qualified Code(s) : K21.9 - Gastro-esophageal reflux disease without esophagitis (7) Suicidal ideation Priority: Secondary Status: Acute (8) CHF (congestive heart failure) Priority: Secondary Status: Chronic Qualifiers: Congestive heart failure type: diastolic Congestive heart failure chronicity: chronic Qualified Code(s): I50.32 - Chronic diastolic (congestive ) heart failure (9) Depression, major, recurrent, mild Priority: Secondary Status: Chronic - Discharge Medications Prescriptions: Ferrous Sulfate 325 mg PO BIDWM #60 tab Home Medications: Aspirin Enteric Coated [Aspirin EC] 81 mg PO DAILY 02/03/16 [History] Cholecalciferol (D-3) [Vitamin D] 2,000 unit PO DAILY 02/03/16 [History] Citalopram [CeleXA] 20 mg PO DAILY 02/03/16 [History] Cyanocobalamin (Vitamin B-12) [Vitamin B12] 1,000 mcg PO SUMOWEFRSA 02/03/16 [ History] Finasteride [Proscar] 5 mg PO DAILY 02/03/16 [History] Ipratropium [ATROVENT Inhaler] 2 puff IH QID 02/03/16 [History] Levothyroxine [Synthroid] 75 mcg PO QAM 02/03/16 [History] Omeprazole [PriLOSEC] 20 mg PO DAILY 02/03/16 [History] Tamsulosin [Flomax] 0.4 mg PO DAILY 02/03/16 [History] Insulin Glargine [Lantus] 60 unit SQ HS 02/06/16 [History] Budesonide/Formoterol 160/4.5 [Symbicort 160/4.5] 2 puff IH BIDR 05/07/16 [ History] Albuterol Neb [Proventil Neb] 2.5 mg IH Q4H PRN 02/14/17 [History] Insulin ASPART [NovoLOG] 16 unit SQ TIDWM 02/14/17 [History] Trazodone HCl 150 mg PO HS 02/14/17 [History] Acetaminophen [Tylenol] 650 mg PO BID 02/15/17 [History] Albuterol Sulfate [Albuterol Inhaler] 2 puff IH Q4H PRN 02/15/17 [History] Lisinopril [Zestril] 20 mg PO DAILY 02/15/17 [History] Metformin HCl [Metformin HCl ER] 1,000 mg PO BID 02/15/17 [History] Simvastatin [Zocor] 40 mg PO HS 02/15/17 [History] hydroCHLOROthiazide [Hydrochlorothiazide] 12.5 mg PO DAILY 02/15/17 [History] Ferrous Sulfate 325 mg PO BIDWM #60 tab 02/19/17 [Rx] Sennosides/Docusate Sodium [Senna Plus] 1 each PO BID tab 02/19/17 [Rx] Allergies/Adverse Reactions: 3 Allergy/AdvReac Type Severity Reaction Status Date / Time No Known Allergies Allergy Verified 02/03/16 11:51 Date of admission: 02/14/17 19:34 Primary care physician: PCP [place] Consults: 02/14/17 20:25 Consult to Concrete Batching Plant Operator [CONS] Routine Reason for SW Consult: From [facility], 02/14/17 20:29 Consult to Psychiatry [CONS] Routine Consulting Provider: [facility] Reason for Consult: [facility] the [facility] d/t suicidal ideations with plan and developed chest pain and was transferred here. Previous suicide attempt in 1994 w/OD. Sitter placed. Patient to be pink slipped. Call Completed: Yes 02/14/17 20:45 Consult to Cardiology [CONS] Routine Comment: Consulting Provider: Bernarda Madrigal Reason for Consult: Patient reports chest pain over past several years that has worsened. Describes pain as stabbing w/o radiation. Last echo 1 year ago. Last stress 1 year ago at [facility]. Echo ordered as well as records from [facility]. Patient is a [facility] pt who was hospitalized for suicidal ideations w/plan and transferred to d/ t CP and initial trop of 0.04. Trops to be trended x2. Call Completed: Yes 02/16/17 15:20 Consult to Gastroenterology [CONS] Routine Consulting Provider: Edi Madrigal Reason for Consult: Microcytic iron deficiency anemia Call Completed: No Discharging clinician: Mandy Palma Anticipated date of discharge: 02/19/17 - Patient Status Disposition: Transfer [facility] Condition: Good Functional capacity at discharge: independent ambulation Overall status at discharge: patient is progressing back to baseline - Discharge Instructions Follow Up With: [facility] [Provider Group] (Appointment web requested. Office to contact patient at home to schedule appointment. ) [place],PCP [Primary Care Provider] - Additional Instructions: F/up with PCP in 1-2 weeks F/up with [facility] in 3-4 weeks - Diet and Activity Activity: resume usual activities as tolerated Diet: diabetic diet, low fat, low cholesterol, low salt diet Hospital course: Mr. Martin is a 66 year old male with the above medical problems who was transferred from [facility] psychiatric unit for complaint of chest pain and slight elevation in troponin. Serial troponins at our hospital remained flat and adynamic, telemetry monitoring was uneventful. Echocardiogram showed preserved ejection fraction, indeterminate left ventricular diastolic dysfunction. Cardiology was consulted and recommended no further inpatient testing. Patient was noted to have incidental finding of a microcytic anemia. He was noted to have a hemoglobin of 14 in 2016, which is 1 year ago and is currently noted to be around 9. He has no symptoms of overt GI bleed. Stool occult blood is negative. GI was consulted and patient underwent EGD which showed nonbleeding gastritis and gastric polyps, no active bleeding. He recently underwent colonoscopy, which was essentially unremarkable. He is recommended to follow up with GI as an outpatient for possible capsule endoscopy. Patient was initially placed on one-on-one sitter for safety and suicidal ideation. His mood gradually improved and he no longer reported depressive or suicidal thoughts. He was seen by psychiatric at our facility, who cleared patient for discharge. Patient is currently medically stable for discharge back to [facility] system. - Time Spent with Patient Total time spent providing and/or coordinating discharge services: Greater than 30 minutes (45 min) - Constitutional Vitals: Temp Pulse Resp BP Pulse Ox 97.8 F 75 16 125/78 93 02/19/17 10:51 02/19/17 10:51 02/19/17 11:25 02/19/17 10:51 02/19/17 11:25 General appearance: Present: A&O X 3, morbidly obese, answers questions appropriately - Cardiovascular Cardiovascular exam: Present: RRR, +S1, +S2. Absent: diastolic murmur, gallop, rubs, systolic murmur
[2017-02-19] MEDS: Cyanocobalamin (B-12) 1,000 MCG TABLET PO SCH (18:08)
[2017-02-19] MEDS: Insulin DETEMIR 100 UNIT/ML X5UNITS SQ SCH (20:30)
[2017-02-19] MEDS: traZODone 50 MG TABLET PO SCH (20:31)
[2017-02-19] MEDS: Artificial Tears SOLN 15 ML BOTTLE BOTH EYES PRN (20:32)
[2017-02-19] MEDS ORDERED: Simethicone 80 MG TAB.CHEW PO PRN (23:29)
[2017-02-20] MEDS: Ipratropium/Albuterol Neb 3 ML IH SCH ×6 (03:39→23:44)
[2017-02-20] MEDS: *HR* Heparin 5,000 UNIT/ML VIAL SQ SCH ×2 (06:16→17:17)
[2017-02-20] MEDS: Budesonide/Formoterol 160/4.5 MDI IH SCH ×2 (07:39→20:05)
[2017-02-20] MEDS: hydroCHLOROthiazide 25 MG TABLET PO SCH (08:22)
[2017-02-20] MEDS: Insulin LISPRO 300 UNITS/3 ML VIAL SQ SCH ×4 (08:22→21:23)
[2017-02-20] MEDS: Aspirin Enteric Coated 81 MG Tablet PO SCH (08:22)
[2017-02-20] MEDS: Sennosides/Docusate Sodium TABLET PO SCH ×2 (08:22→21:23)
[2017-02-20] MEDS: Finasteride 5 MG TABLET PO SCH (08:23)
--- NOTE | 2017-02-20 14:57 | Internal Med Progress Note ---
Date of Encounter: 02/20/17 Time of Encounter: 12:10 - Assessment and plan (1) Chest pain Current Visit: Yes Status: Resolved Qualifiers: Chest pain type: unspecified Qualified Code(s): R07.9 - Chest pain, unspecified (2) Anemia Current Visit: Yes Status: Acute Assessment and plan: Patient's hemoglobin in 2016 was noted to be around 14 and is currently around 9. Microcytic anemia. He does not report any symptoms of overt GI bleed. Stool for occult blood negative. GI has been consulted and underwent EGD-shows mild gastritis and gastric polyps, no active bleeding. Iron profile shows low iron reserve, start oral ferrous sulfate supplements. serum vitamin B12 and folate levels WNL. Patient is medically stable for discharge, however he is not accepted by [facility] due to ?[place] [facility] [place]. cloud services architect to work on having him transferred to [facility]; Qualifiers: Anemia type: iron deficiency Iron deficiency anemia type: unspecified iron deficiency Qualified Code(s): D50.9 - Iron deficiency anemia, unspecified (3) COPD (chronic obstructive pulmonary disease) Current Visit: Yes Status: Chronic Assessment and plan: Not in acute exacerbation. Continue when necessary bronchodilators and supplemental oxygen. Qualifiers: COPD type: unspecified COPD Qualified Code(s): J44.9 - Chronic obstructive pulmonary disease, unspecified (4) Diabetes Current Visit: Yes Status: Chronic Assessment and plan: Accu-Chek blood glucose monitoring with sliding scale insulin. Blood glucose noted to be uncontrolled; will increase Lantus to twice daily; Diabetic diet. Qualifiers: Diabetes mellitus type: type 2 Diabetes mellitus complication status: with unspecified complications Diabetes mellitus assisted insulin use: without assisted use Qualified Code(s): E11.8 - Type 2 diabetes mellitus with unspecified complications (5) HLD (hyperlipidemia) Current Visit: Yes Status: Chronic Qualifiers: Hyperlipidemia type: unspecified Qualified Code(s): E78.5 - Hyperlipidemia , unspecified (6) GERD (gastroesophageal reflux disease) Current Visit: Yes Status: Chronic Qualifiers: Esophagitis presence: esophagitis presence not specified Qualified Code(s) : K21.9 - Gastro-esophageal reflux disease without esophagitis (7) Suicidal ideation Current Visit: Yes Status: Acute (8) CHF (congestive heart failure) Current Visit: Yes Status: Chronic Qualifiers: Congestive heart failure type: diastolic Congestive heart failure chronicity: chronic Qualified Code(s): I50.32 - Chronic diastolic (congestive ) heart failure (9) Depression, major, recurrent, mild Current Visit: Yes Status: Chronic - Subjective Interval history: Feels well; improved chest pain, no dyspnea, abdominal pain; denies hematochezia , melena, nausea, vomiting; has bowel movements with Dulcolax; awaiting transfer back to [place]; - Constitutional Vitals: Temp Pulse Resp BP Pulse Ox 98.2 F 91 16 122/77 98 02/20/17 10:49 02/20/17 10:49 02/20/17 11:31 02/20/17 10:49 02/20/17 11:31 General appearance: Present: A&O X 3, morbidly obese, answers questions appropriately - Respiratory Respiratory exam: Present: CTAB. Absent: accessory muscle use, rales, rhonchi, wheezes - Cardiovascular Cardiovascular exam: Present: RRR, +S1, +S2. Absent: diastolic murmur, gallop, rubs, systolic murmur - GI/Abdominal GI/Abdominal exam: Present: normal bowel sounds, soft, no peritoneal signs. Absent: distended, tenderness Internal Medicine: Result - Labs CBC & Chem 7: 02/16/17 07:43 02/16/17 07:43 - ABG Interpretation ABG results: PT/INR, D-dimer PT 12.9 Seconds (9.4-12.1) H 02/15/17 04:06 Consult Discharge Plan - Plan Additional Instructions: F/up with PCP in 1-2 weeks F/up with [facility] in 3-4 weeks Referrals: [facility] [Provider Group] (Appointment web requested. Office to contact patient at home to schedule appointment. ) [place],PCP [Primary Care Provider] - Prescriptions: Ferrous Sulfate 325 mg PO BIDWM #60 tab
[2017-02-20] MEDS: Cyanocobalamin (B-12) 1,000 MCG TABLET PO SCH (17:17)
[2017-02-20] MEDS: traZODone 50 MG TABLET PO SCH (21:22)
[2017-02-20] MEDS: Insulin DETEMIR 100 UNIT/ML X5UNITS SQ SCH (21:23)
[2017-02-21] MEDS: Ipratropium/Albuterol Neb 3 ML IH SCH ×5 (03:40→20:05)
[2017-02-21 05:00] LABS: Calcium 9.4 mg/dL (8.6-10.8); Potassium 4.6 mEq/L (3.5-4.5)
[2017-02-21] MEDS: *HR* Heparin 5,000 UNIT/ML VIAL SQ SCH ×2 (05:53→17:48)
[2017-02-21] MEDS: Budesonide/Formoterol 160/4.5 MDI IH SCH ×2 (07:37→20:05)
[2017-02-21] MEDS: Insulin LISPRO 300 UNITS/3 ML VIAL SQ SCH ×3 (08:16→17:49)
[2017-02-21] MEDS: Insulin DETEMIR 100 UNIT/ML X5UNITS SQ SCH ×2 (08:16→20:42)
[2017-02-21] MEDS: Sennosides/Docusate Sodium TABLET PO SCH ×2 (08:17→20:42)
[2017-02-21] MEDS: Finasteride 5 MG TABLET PO SCH (08:17)
[2017-02-21] MEDS: Aspirin Enteric Coated 81 MG Tablet PO SCH (08:17)
[2017-02-21] MEDS: hydroCHLOROthiazide 25 MG TABLET PO SCH (08:17)
[2017-02-21] MEDS ORDERED: Insulin DETEMIR 100 UNIT/ML X5UNITS SQ SCH (12:01)
--- NOTE | 2017-02-21 12:23 | Internal Med Progress Note ---
Date of Encounter: 02/21/17 Time of Encounter: 12:22 - Assessment and plan (1) Chest pain Current Visit: Yes Status: Resolved Assessment and plan: Admitted with intermittent retrosternal chest pain, currently resolved. Serial troponins noted to be flat and adynamic, less likely ACS. Cardiology consult appreciated, recommended no further inpatient testing. Echocardiogram shows preserved ejection fraction with no wall motion abnormalities. Qualifiers: Chest pain type: unspecified Qualified Code(s): R07.9 - Chest pain, unspecified (2) Anemia Current Visit: Yes Status: Acute Assessment and plan: Patient's hemoglobin in 2016 was noted to be around 14 and is currently around 9. Microcytic anemia. He does not report any symptoms of overt GI bleed. Stool for occult blood negative. GI has been consulted and underwent EGD-shows mild gastritis and gastric polyps, no active bleeding. Iron profile shows low iron reserve, start oral ferrous sulfate supplements. serum vitamin B12 and folate levels WNL. Patient is medically stable for discharge, however he is not accepted by [facility] due to [place] [facility] [place]. social worker health services to work on having him transferred to [place] [facility]; Qualifiers: Anemia type: iron deficiency Iron deficiency anemia type: unspecified iron deficiency Qualified Code(s): D50.9 - Iron deficiency anemia, unspecified (3) COPD (chronic obstructive pulmonary disease) Current Visit: Yes Status: Chronic Qualifiers: COPD type: unspecified COPD Qualified Code(s): J44.9 - Chronic obstructive pulmonary disease, unspecified (4) Diabetes Current Visit: Yes Status: Chronic Assessment and plan: Accu-Chek blood glucose monitoring with sliding scale insulin. Blood glucose noted to be uncontrolled; will increase Lantus to twice daily and increase sliding scale to high dose; Diabetic diet. Qualifiers: Diabetes mellitus type: type 2 Diabetes mellitus complication status: with unspecified complications Diabetes mellitus intermediate frame tender insulin use: without intermediate frame tender use Qualified Code(s): E11.8 - Type 2 diabetes mellitus with unspecified complications (5) HLD (hyperlipidemia) Current Visit: Yes Status: Chronic Qualifiers: Hyperlipidemia type: unspecified Qualified Code(s): E78.5 - Hyperlipidemia , unspecified (6) GERD (gastroesophageal reflux disease) Current Visit: Yes Status: Chronic Qualifiers: Esophagitis presence: esophagitis presence not specified Qualified Code(s) : K21.9 - Gastro-esophageal reflux disease without esophagitis (7) Suicidal ideation Current Visit: Yes Status: Acute Assessment and plan: Patient was admitted at the [place] inpatient psychiatry unit for suicidal ideation and being treated for major depression. Has been evaluated by psychiatric here and cleared for discharge. Denies suicidal ideation at this time. Continue home medications. Plan to be transferred back to [facility], he reports no further suicidal ideation; (8) CHF (congestive heart failure) Current Visit: Yes Status: Chronic Qualifiers: Congestive heart failure type: diastolic Congestive heart failure chronicity: chronic Qualified Code(s): I50.32 - Chronic diastolic (congestive ) heart failure (9) Depression, major, recurrent, mild Current Visit: Yes Status: Chronic - Subjective Interval history: No new complaints; improved/relieved constipation; no nausea, chest or abdominal pain; awaiting transfer back to [facility]; - Constitutional Vitals: Temp Pulse Resp BP Pulse Ox 97.7 F 75 18 136/76 93 02/21/17 11:30 02/21/17 11:30 02/21/17 11:36 02/21/17 11:30 02/21/17 11:36 General appearance: Present: A&O X 3, morbidly obese, answers questions appropriately - Respiratory Respiratory exam: Present: CTAB. Absent: accessory muscle use, rales, rhonchi, wheezes - Cardiovascular Cardiovascular exam: Present: RRR, +S1, +S2. Absent: diastolic murmur, gallop, rubs, systolic murmur - GI/Abdominal GI/Abdominal exam: Present: normal bowel sounds, soft, no peritoneal signs. Absent: distended, tenderness Internal Medicine: Result - Labs CBC & Chem 7: 02/16/17 07:43 02/21/17 04:19 Labs: BMP 02/21/17 04:19 Sodium 136 Potassium 4.6 H Chloride 100 Carbon Dioxide 25 BUN 25 Creatinine 1.51 H Glucose 201 H Calcium 9.4 - ABG Interpretation ABG results: PT/INR, D-dimer PT 12.9 Seconds (9.4-12.1) H 02/15/17 04:06 Consult Discharge Plan - Plan Additional Instructions: F/up with PCP in 1-2 weeks F/up with [facility] in 3-4 weeks Referrals: [facility] [Provider Group] (Appointment web requested. Office to contact patient at home to schedule appointment. ) [facility] [Primary Care Provider] - Prescriptions: Ferrous Sulfate 325 mg PO BIDWM #60 tab
[2017-02-21] MEDS: Cyanocobalamin (B-12) 1,000 MCG TABLET PO SCH (17:48)
[2017-02-21] MEDS: traZODone 50 MG TABLET PO SCH (20:42)
[2017-02-21] MEDS ORDERED: Insulin LISPRO 300 UNITS/3 ML VIAL SQ SCH (21:00)
[2017-02-22] MEDS: Ipratropium/Albuterol Neb 3 ML IH SCH ×4 (00:11→11:09)
[2017-02-22] MEDS: *HR* Heparin 5,000 UNIT/ML VIAL SQ SCH (06:15)
[2017-02-22] MEDS: Budesonide/Formoterol 160/4.5 MDI IH SCH (07:29)
[2017-02-22] MEDS: Insulin LISPRO 300 UNITS/3 ML VIAL SQ SCH ×2 (07:49→12:40)
[2017-02-22] MEDS: Artificial Tears SOLN 15 ML BOTTLE BOTH EYES PRN (07:49)
[2017-02-22] MEDS: Sennosides/Docusate Sodium TABLET PO SCH (07:51)
[2017-02-22] MEDS: Finasteride 5 MG TABLET PO SCH (07:51)
[2017-02-22] MEDS: Aspirin Enteric Coated 81 MG Tablet PO SCH (07:51)
[2017-02-22] MEDS: hydroCHLOROthiazide 25 MG TABLET PO SCH (07:54)
[2017-02-22] MEDS: Insulin DETEMIR 100 UNIT/ML X5UNITS SQ SCH (07:58)
[2017-02-22 11:16] VITALS: BP 115/76
--- NOTE | 2017-02-22 12:49 | Internal Med Progress Note ---
Date of Encounter: 02/22/17 Time of Encounter: 12:42 - Assessment and plan (1) Chest pain Status: Resolved Qualifiers: Chest pain type: unspecified Qualified Code(s): R07.9 - Chest pain, unspecified (2) Anemia Status: Acute Assessment and plan: Patient's hemoglobin in 2016 was noted to be around 14 and is currently around 9. Microcytic anemia. He does not report any symptoms of overt GI bleed. Stool for occult blood negative. GI has been consulted and underwent EGD-shows mild gastritis and gastric polyps, no active bleeding. Iron profile shows low iron reserve, start oral ferrous sulfate supplements. serum vitamin B12 and folate levels WNL. Patient is medically stable for discharge. social services counselor to work on having him transferred to [facility]; Qualifiers: Anemia type: iron deficiency Iron deficiency anemia type: unspecified iron deficiency Qualified Code(s): D50.9 - Iron deficiency anemia, unspecified (3) COPD (chronic obstructive pulmonary disease) Status: Chronic Qualifiers: COPD type: unspecified COPD Qualified Code(s): J44.9 - Chronic obstructive pulmonary disease, unspecified (4) Diabetes Status: Chronic Assessment and plan: Accu-Chek blood glucose monitoring with sliding scale insulin. Blood glucose better controlled today; continue Lantus twice daily and sliding scale high dose ; Diabetic diet. Qualifiers: Diabetes mellitus type: type 2 Diabetes mellitus complication status: with unspecified complications Diabetes mellitus mcc insulin use: without termination clerk use Qualified Code(s): E11.8 - Type 2 diabetes mellitus with unspecified complications (5) HLD (hyperlipidemia) Status: Chronic Qualifiers: Hyperlipidemia type: unspecified Qualified Code(s): E78.5 - Hyperlipidemia , unspecified (6) GERD (gastroesophageal reflux disease) Status: Chronic Qualifiers: Esophagitis presence: esophagitis presence not specified Qualified Code(s) : K21.9 - Gastro-esophageal reflux disease without esophagitis (7) Suicidal ideation Status: Acute (8) CHF (congestive heart failure) Status: Chronic Qualifiers: Congestive heart failure type: diastolic Congestive heart failure chronicity: chronic Qualified Code(s): I50.32 - Chronic diastolic (congestive ) heart failure (9) Depression, major, recurrent, mild Status: Chronic - Subjective Interval history: No new complaints; improved/relieved constipation; no nausea, chest or abdominal pain; [facility]; - Constitutional Vitals: Temp Pulse Resp BP Pulse Ox 98.0 F 70 20 115/76 99 02/22/17 11:15 02/22/17 11:15 02/22/17 11:15 02/22/17 11:15 02/22/17 11:15 General appearance: Present: A&O X 3, morbidly obese, answers questions appropriately - Respiratory Respiratory exam: Present: CTAB. Absent: accessory muscle use, rales, rhonchi, wheezes - Cardiovascular Cardiovascular exam: Present: RRR, +S1, +S2. Absent: diastolic murmur, gallop, rubs, systolic murmur - GI/Abdominal GI/Abdominal exam: Present: normal bowel sounds, soft, no peritoneal signs. Absent: distended, tenderness Internal Medicine: Result - Labs CBC & Chem 7: 02/16/17 07:43 02/21/17 04:19 - ABG Interpretation ABG results: PT/INR, D-dimer PT 12.9 Seconds (9.4-12.1) H 02/15/17 04:06 Consult Discharge Plan - Plan Instructions: Iron Supplements (By mouth) Additional Instructions: F/up with PCP in 1-2 weeks F/up with [facility] in 3-4 weeks Referrals: [facility] [Provider Group] (Appointment web requested. Office to contact patient at home to schedule appointment. ) [facility] [Outside] - 02/26/17 10:00 am (You have an appointment scheduled with the [facility] pys[facility]at[facility] at the date below. The office is located in [facility] [address] at [address] [facility], [id number]) [place],PCP [Primary Care Provider] - 02/25/17 9:30 am (You have an appointment with the [facility] bronze team) Prescriptions: Ferrous Sulfate 325 mg PO BIDWM #60 tab
[2017-02-22] MEDS ORDERED: Insulin LISPRO 300 UNITS/3 ML VIAL SQ SCH ×2 (16:30→21:00)
== END 2017-02-22 15:23 | DRG 313 ==
LOC: 3BNU 14:27 → EMEROO 14:27 → 3BNU 18:30 → SUATTDRO 19:34 → 3BNU 02-15 01:16
PROVIDERS: ADMIT Nurse Practitioner Acute Care; ATTEND Internal Medicine
PROC: ENDOEBX (2017-02-18 08:30)

== ENCOUNTER 2019-07-02 18:07 | Observation (INO) ==
[2019-07-02] MEDS ORDERED: Ibuprofen 600 MG TABLET PO ONE (18:24)
[2019-07-02] MEDS ORDERED: 0.9 % Sodium Chloride 1,000 ML IVC ONE ×2 (18:24→19:02)
[2019-07-02] MEDS ORDERED: Isovue-370 500 ML BOTTLE IVP ONE (18:54)
[2019-07-02] MEDS ORDERED: cefTRIAXone 1,000 MG in Water for inj. (sterile) 10 ML IVP ONE (19:02)
[2019-07-02 19:29] LABS: Basophils % 0.2 %; Eosinophils % 0.1 %; Hematocrit 53.5 % (37.5-50.1); Hemoglobin 17.4 g/dL (12.9-16.9); Immature Granulocytes % 0.3 % (0-4); Lymphocytes # 0.3 K/mcL (0.6-4.6); Lymphocytes % 1.6 %; Mean Corpuscular HGB Conc 32.5 g/dL (31.6-35.5); Mean Corpuscular Hemoglobin 29.8 pg (28.0-33.3); Mean Corpuscular Volume 91.6 fL (83.0-100.0); Mean Platelet Volume 9.3 fL (9.4-12.4); Monocytes # 1.1 K/mcL (0.0-1.3); Neutrophils # 16.5 K/mcL (1.6-8.9); Platelet Count 220 K/mcL (140-400); Red Blood Count 5.84 M/mcL (4.19-5.50); Red Cell Distribution Width 13.6 % (11.5-14.5); Segmented Neutrophils % 91.8 %; White Blood Count 17.9 K/mcL (4.3-11.1)
[2019-07-02 19:33] LABS: INR 1.1; Prothrombin Time 12.6 Seconds (9.4-12.1)
[2019-07-02 19:35] LABS: Activated Partial Thrombo Time 28.1 Seconds (26.0-36.0)
[2019-07-02 20:09] LABS: Alanine Aminotransferase 28 Units/L (7-52); Albumin 4.6 g/dL (3.5-5.7); Albumin/Globulin Ratio 1.4 (1.1-2.2); Alkaline Phosphatase 65 Units/L (34-104); Aspartate Amino Transferase 28 Units/L (13-39); BUN/Creatinine Ratio 16 (6-26); Bilirubin,Direct 0.1 mg/dL (0.0-0.2); Bilirubin,Indirect 0.6 mg/dL (0.0-1.0); Bilirubin,Total 0.7 mg/dL (0.3-1.0); Blood Urea Nitrogen 23 mg/dL (8-23); Calcium 9.5 mg/dL (8.6-10.3); Carbon Dioxide 23 mEq/L (23-29); Chloride 98 mEq/L (98-107); Creatine Kinase 249 Units/L (30-223); Ethanol < 10 mg/dL (Less than 10); Globulin 3.3 g/dL (2.4-3.5); Glucose 194 mg/dL (70-105); Osmolality,Calculated 293 (280-300); Potassium 4.9 mEq/L (3.5-5.1); Sodium 137 mEq/L (136-145); Thyroid Stimulating Hormone 1.786 mcIU/mL (0.340-5.600); Total Protein 7.9 g/dL (6.4-8.9); Troponin I 0.07 ng/mL (< 0.04); eGFR For African Americans 60 (> 60); eGFR For Non-African Americans 49 (> 60)
[2019-07-02] MEDS ORDERED: Aspirin 81 MG TAB.CHEW PO ONE (20:13)
[2019-07-02] MEDS ORDERED: MetroNIDAZOLE 500 MG/100 ML 500 MG/100 ML BAG IVPB ONE (21:11)
[2019-07-02] MEDS ORDERED: Naloxone 0.4 MG/ML INJ IVP PRN (23:38)
[2019-07-02] MEDS ORDERED: Ondansetron ODT 4 MG TAB.RAPDIS SL PRN (23:38)
[2019-07-02] MEDS ORDERED: D5% in Water 1,000 ML IVC PRN (23:39)
[2019-07-02] MEDS ORDERED: *HR* Dextrose 50 % in Water (Syg) 50 ML SYRINGE IVP PRN (23:39)
[2019-07-02] MEDS ORDERED: Dextrose Gel 15 GM/37.5 ML TUBE PO PRN ×2 (23:39)
[2019-07-02] MEDS ORDERED: Insulin DETEMIR 100 UNIT/ML X5UNITS SQ SCH (23:45)
[2019-07-03] MEDS ORDERED: Vancomycin Oral Soln 125 MG/2.5 ML UDC PO SCH (00:46)
[2019-07-03] MEDS: Insulin LISPRO 300 UNITS/3 ML VIAL SQ SCH ×4 (00:59→16:33)
[2019-07-03 01:05] LABS: C.difficile Toxin A/B Gene PCR Not detected (Not detect); Campylobacter by PCR Not detected (Not detect); Enteroaggregative E.coli(EAEC) Not detected (Not detect); Enteropathogenic E.coli(EPEC) Not detected (Not detect); Enterotoxigenic E.coli (ETEC) Not detected (Not detect); Plesiomonas shigelloides PCR Not detected (Not detect); Salmonella PCR Not detected (Not detect); Vibrio PCR Not detected (Not detect); Vibrio cholerae PCR Not detected (Not detect); Yersinia enterocolitica PCR Not detected (Not detect)
[2019-07-03 01:06] LABS: Adenovirus F 40/41 PCR Not detected (Not detect); Astrovirus PCR Not detected (Not detect); Cryptosporidium by PCR Not detected (Not detect); Cyclospora cayetanensis PCR Not detected (Not detect); E. coli O157 by PCR Not detected (Not detect); Entamoeba histolytica PCR Not detected (Not detect); Giardia lamblia PCR Not detected (Not detect); Norovirus GI/GII PCR DETECTED (Not detect); Rotavirus A PCR Not detected (Not detect); Sapovirus PCR Not detected (Not detect); Shig/EnteroinvasiveE coli EIEC Not detected (Not detect); Shigalike tox-prod E coli STEC Not detected (Not detect)
[2019-07-03] MEDS ORDERED: Ondansetron 4 MG/2 ML VIAL IVP PRN (01:31)
[2019-07-03] MEDS ORDERED: Naloxone 0.4 MG/ML INJ IVP PRN (01:31)
[2019-07-03 03:10] LABS: Basophils % 0.1 %; Hematocrit 43.8 % (37.5-50.1); Immature Granulocytes % 0.3 % (0-4); Lymphocytes # 0.4 K/mcL (0.6-4.6); Lymphocytes % 3.1 %; Mean Corpuscular HGB Conc 33.6 g/dL (31.6-35.5); Mean Corpuscular Hemoglobin 29.8 pg (28.0-33.3); Mean Corpuscular Volume 88.8 fL (83.0-100.0); Mean Platelet Volume 9.4 fL (9.4-12.4); Monocytes # 0.9 K/mcL (0.0-1.3); Monocytes % 6.7 %; Neutrophils # 12.1 K/mcL (1.6-8.9); Platelet Count 179 K/mcL (140-400); Red Blood Count 4.93 M/mcL (4.19-5.50); Red Cell Distribution Width 13.7 % (11.5-14.5); Segmented Neutrophils % 89.8 %; White Blood Count 13.5 K/mcL (4.3-11.1)
[2019-07-03 03:11] LABS: Hemoglobin 14.7 g/dL (12.9-16.9)
[2019-07-03 03:35] LABS: Calcium 7.9 mg/dL (8.6-10.3); Potassium 4.1 mEq/L (3.5-5.1)
[2019-07-03 03:36] LABS: Magnesium 1.5 mg/dL (1.6-2.6); Phosphorous 3.4 mg/dL (2.7-4.5)
[2019-07-03 04:05] LABS: Estimated Average Glucose 131 mg/dl
[2019-07-03] MEDS: *HR* Heparin 5,000 UNIT/ML VIAL SQ SCH ×2 (05:43→18:09)
[2019-07-03 05:50] LABS: Bilirubin,Urine Negative (Negative); Blood,Urine Negative (Negative); Clarity,Urine Clear (Clear); Color,Urine Dark Yellow (Yellow); Glucose,Urine (UA) Normal (Normal); Ketones,Urine Negative (Negative); Leukocyte Esterase,Urine Negative (Negative); Nitrite,Urine Negative (Negative); PH,Urine 5.5 pH Units (5.0-8.0); Protein,Urine Trace mg/dL (Neg-Trace); Specific Gravity,Urine > 1.030 (1.010-1.025); Urobilinogen,Urine Normal (Normal)
[2019-07-03 05:52] LABS: Amphetamine Screen,Urine Negative ng/mL (Cutoff=1000); Barbiturate Screen,Urine Negative ng/mL (Cutoff=200)
[2019-07-03 05:54] LABS: Benzodiazepines Screen,Urine Negative ng/mL (Cutoff=300); Cannabinoid Screen,Urine Negative ng/mL (Cutoff = 50); Cocaine Screen,Urine Negative ng/mL (Cutoff= 300); Opiate Screen,Urine Negative ng/mL (Cutoff=300); Phencyclidine Screen,Urine Negative ng/mL (Cutoff=25)
[2019-07-03] MEDS: Ringers Solution, Lactated 1,000 ML IVC SCH ×2 (06:45→18:09)
[2019-07-03] MEDS ORDERED: 0.9 % Sodium Chloride 1,000 ML IVC SCH (07:45)
[2019-07-03] MEDS ORDERED: hydroCHLOROthiazide 25 MG TABLET PO SCH (09:00)
[2019-07-03] MEDS ORDERED: metroNIDAZOLE 500 MG TABLET PO SCH (09:00)
[2019-07-03] MEDS: Metoprolol XL (24 HR) Succ 50 MG TAB.ER.24H PO SCH (10:20)
[2019-07-03] MEDS: Finasteride 5 MG TABLET PO SCH (10:20)
[2019-07-03] MEDS: Aspirin Enteric Coated 81 MG Tablet PO SCH (10:20)
[2019-07-03] MEDS: Lisinopril 20 MG TABLET PO SCH (10:21)
[2019-07-03] MEDS ORDERED: Perflutren Lipid Microsphere 1.3 ML in 0.9 % Sodium Chloride 8.7 ML IVP ONE (15:19)
[2019-07-03] MEDS ORDERED: Insulin LISPRO 300 UNITS/3 ML VIAL SQ SCH (21:00)
[2019-07-03] MEDS ORDERED: Insulin DETEMIR 100 UNIT/ML X5UNITS SQ SCH (21:00)
[2019-07-03] MEDS ORDERED: traZODone 50 MG TABLET PO SCH (21:00)
[2019-07-04] MEDS: Ringers Solution, Lactated 1,000 ML IVC SCH ×3 (01:37→14:53)
[2019-07-04] MEDS: *HR* Heparin 5,000 UNIT/ML VIAL SQ SCH (05:41)
[2019-07-04 05:44] LABS: Basophils % 0.3 %; Eosinophils # 0.2 K/mcL (0.0-0.6); Eosinophils % 2.8 %; Hematocrit 38.9 % (37.5-50.1); Immature Granulocytes % 0.4 % (0-4); Lymphocytes # 1.2 K/mcL (0.6-4.6); Lymphocytes % 15.4 %; Mean Corpuscular HGB Conc 33.2 g/dL (31.6-35.5); Mean Corpuscular Hemoglobin 29.6 pg (28.0-33.3); Mean Corpuscular Volume 89.2 fL (83.0-100.0); Mean Platelet Volume 9.3 fL (9.4-12.4); Monocytes # 0.9 K/mcL (0.0-1.3); Neutrophils # 5.4 K/mcL (1.6-8.9); Platelet Count 159 K/mcL (140-400); Red Blood Count 4.36 M/mcL (4.19-5.50); Red Cell Distribution Width 13.8 % (11.5-14.5); Segmented Neutrophils % 69.1 %; White Blood Count 7.9 K/mcL (4.3-11.1)
[2019-07-04 05:48] LABS: Hemoglobin 12.9 g/dL (12.9-16.9)
[2019-07-04 06:03] LABS: BUN/Creatinine Ratio 15 (6-26); Blood Urea Nitrogen 16 mg/dL (8-23); Calcium 7.8 mg/dL (8.6-10.3); Carbon Dioxide 26 mEq/L (23-29); Chloride 106 mEq/L (98-107); Glucose 105 mg/dL (70-105); Magnesium 1.7 mg/dL (1.6-2.6); Osmolality,Calculated 290 (280-300); Phosphorous 1.9 mg/dL (2.7-4.5); Potassium 3.6 mEq/L (3.5-5.1); Sodium 139 mEq/L (136-145); eGFR For African Americans > 60 (> 60); eGFR For Non-African Americans > 60 (> 60)
[2019-07-04] MEDS ORDERED: Calcium Gluconate 1gm/50mL 1 GM/50 ML BAG IVPB SCH (07:30)
[2019-07-04] MEDS: Finasteride 5 MG TABLET PO SCH (08:28)
[2019-07-04] MEDS: Metoprolol XL (24 HR) Succ 50 MG TAB.ER.24H PO SCH (08:28)
[2019-07-04] MEDS: Lisinopril 20 MG TABLET PO SCH (08:28)
[2019-07-04] MEDS: Aspirin Enteric Coated 81 MG Tablet PO SCH (08:29)
[2019-07-04] MEDS: Insulin LISPRO 300 UNITS/3 ML VIAL SQ SCH ×2 (08:29→11:41)
[2019-07-04 11:40] VITALS: BP 126/64
[2019-07-04 15:35] LABS: Chol/HDL Ratio 3.7 (0-4.9); Cholesterol 97 mg/dL (< 200); HDL Cholesterol 26 mg/dL (40-59); LDL Cholesterol,Calculated 34 mg/dL (0-99); Triglycerides 185 mg/dL (< 150)
== END 2019-07-04 15:19 | disposition home or self-care (01) ==
LOC: EMEROOARM 18:07 → 2ANU 18:07
PROVIDERS: ADMIT Student in an Organized Health Care Education/Training Program; ATTEND Student in an Organized Health Care Education/Training Program